=== PATIENT | male | born 1955 | race Caucasian/White ===

== ENCOUNTER → 2019-09-28 | Outpatient (REF) | payer MEDICARE, MEDICAID ==
[~2019-09-28] MED LIST: ACET1TAB55 PO; ADV250INH INH; ALLO100T PO; CALC600T3 PO; CYAN100049 PO; CYCL10TA PO; DOCU100C16 PO; ENOX30IN3 SC; LATA0.0013 OU; LORA-243 PO; MAGN250T3 PO; OMEP40CA97 PO; OXYC-517 PO; SENN8.6C PO; SIMV20TA2 PO; VITA20008 PO; VITMTA PO; WELLTAB40 PO; ZOFR8TAB24 PO
[2019-09-28 16:05] LABS: HEMATOCRIT 38.4 % (42.0-52.0); HEMOGLOBIN 12.4 g/dl (13.5-17.5); MEAN CORPUSCULAR HEMOGLOBIN 30.3 pg (27.0-33.0); MEAN CORPUSCULAR HGB CONC 32.3 g/dl (32.0-36.5); MEAN CORPUSCULAR VOLUME 93.9 fl (80.0-96.0); PLATELET COUNT, AUTOMATED 333 10^3/uL (150-450); RED BLOOD COUNT 4.09 10^6/uL (4.30-6.10); WHITE BLOOD COUNT 9.9 10^3/uL (4.0-10.0)
[2019-09-28 16:10] LABS: ALBUMIN 3.6 GM/DL (3.2-5.2); ALT/SGPT 26 U/L (12-78); BILIRUBIN,TOTAL 0.5 MG/DL (0.2-1.0); BLOOD UREA NITROGEN 24 MG/DL (7-18); C REACTIVE PROTEIN QUANTITATIV < 0.30 MG/DL (0.00-0.30); CALCIUM LEVEL 9.3 MG/DL (8.8-10.2); CARBON DIOXIDE LEVEL 26 MEQ/L (21-32); CHLORIDE LEVEL 107 MEQ/L (98-107); CREATININE FOR GFR 0.87 MG/DL (0.70-1.30); GLOMERULAR FILTRATION RATE > 60.0 (>49); GLUCOSE, FASTING 100 MG/DL (70-100); POTASSIUM SERUM 4.4 MEQ/L (3.5-5.1); SODIUM LEVEL 140 MEQ/L (136-145)
[2019-09-28 16:46] LABS: ERYTHROCYTE SEDIMENTATION RATE 10 mm/hr (0-20)
[2019-09-28 16:51] LABS: ATYPICAL LYMPH 3 % (0-5); BASOPHILS 1 % (0-1); EOSINOPHILS 5 % (0-3); LYMPHOCYTES 44 % (16-44); MONOCYTES 7 % (0-5); NEUTROPHILS 40 % (28-66); PLATELET ESTIMATE NORMAL (NORMAL)
[2019-09-28 16:52] LABS: ANISOCYTOSIS 1+; BURR CELLS 1+; POIKILOCYTOSIS 1+
== END ==
LOC: M SFHCPLAZ 13:48
PROVIDERS: ATTEND Internal Medicine Infectious Disease
DX: I83.013 Varicose veins of right lower extremity with ulcer of ankle (principal)
CPT/HCPCS: 36415; 80053; 85025; 85652; 86140; G0463

== ENCOUNTER → 2019-10-26 | Outpatient (REF) | payer MEDICARE, MEDICAID ==
[~2019-10-26] MED LIST changes: -SIMV20TA2 PO; +SIMV20TA22 PO
== END ==
LOC: M SFHCPLAZ 15:33
PROVIDERS: ATTEND Internal Medicine Infectious Disease
DX: S88.112A Complete traumatic amputation at level between knee and ankle, left lower leg, initial encounter (principal)
CPT/HCPCS: 87070; 87077; 87186; 87205; G0463

== ENCOUNTER → 2019-11-30 | Outpatient (REF) | payer MEDICARE, MEDICAID ==
[2019-11-30 13:28] LABS: BASO # 0.1 10^3/uL (0.0-0.2); BASO % 0.7 % (0.0-1.0); EOS # 0.2 10^3/uL (0.0-0.5); EOS % 2.6 % (0.0-3.0); HEMATOCRIT 38.1 % (42.0-52.0); HEMOGLOBIN 12.3 g/dl (13.5-17.5); LYMPH # 3.6 10^3/uL (1.5-5.0); LYMPH % 39.7 % (24.0-44.0); MEAN CORPUSCULAR HEMOGLOBIN 30.4 pg (27.0-33.0); MEAN CORPUSCULAR HGB CONC 32.3 g/dl (32.0-36.5); MEAN CORPUSCULAR VOLUME 94.1 fl (80.0-96.0); MONO # 1.1 10^3/uL (0.0-0.8); MONO % 12.7 % (0.0-5.0); NEUTROPHILS % 44.1 % (36.0-66.0); PLATELET COUNT, AUTOMATED 312 10^3/uL (150-450); RED BLOOD COUNT 4.05 10^6/uL (4.30-6.10)
[2019-11-30 14:00] LABS: ERYTHROCYTE SEDIMENTATION RATE 10 mm/hr (0-20)
[2019-11-30 14:09] LABS: ALBUMIN 3.6 GM/DL (3.2-5.2); ALT/SGPT 22 U/L (12-78); BILIRUBIN,TOTAL 0.2 MG/DL (0.2-1.0); BLOOD UREA NITROGEN 26 MG/DL (7-18); C REACTIVE PROTEIN QUANTITATIV < 0.30 MG/DL (0.00-0.30); CALCIUM LEVEL 8.9 MG/DL (8.8-10.2); CARBON DIOXIDE LEVEL 27 MEQ/L (21-32); CHLORIDE LEVEL 107 MEQ/L (98-107); CREATININE FOR GFR 0.69 MG/DL (0.70-1.30); FREE T4 0.83 NG/DL (0.76-1.46); GLOMERULAR FILTRATION RATE > 60.0 (>49); GLUCOSE, FASTING 104 MG/DL (70-100); POTASSIUM SERUM 4.6 MEQ/L (3.5-5.1); SODIUM LEVEL 141 MEQ/L (136-145); THYROID STIMULATING HORMONE 0.845 uIU/ML (0.358-3.740); TOTAL PROTEIN 6.7 GM/DL (6.4-8.2)
== END ==
LOC: M SFHCPLAZ 11:17
PROVIDERS: ATTEND Internal Medicine Infectious Disease
DX: R53.82 Chronic fatigue, unspecified (principal); I83.013 Varicose veins of right lower extremity with ulcer of ankle
CPT/HCPCS: 36415; 80053; 84439; 84443; 85025; 85652; 86140; G0463

== ENCOUNTER 2021-07-31 11:32 | Inpatient (IN) | payer MEDICARE, MEDICAID ==
[~2021-07-31] VITALS: Ht 177.8 cm; Wt 104.4 kg
[~2021-07-31 11:32] MED LIST changes: -CALC600T3 PO; +CALC600T86 PO; +CYCL-707 PO; -CYCL10TA PO; +OMEP40CA4 PO; -OMEP40CA97 PO
[2021-07-31 15:35] VITALS: BP 149/70
[2021-07-31] MEDS ORDERED: CYAN500T14 PO (16:51)
[2021-07-31] MEDS ORDERED: VITA-158 PO (16:51)
[2021-07-31] MEDS ORDERED: D31000TA2 PO (16:51)
[2021-07-31] MEDS ORDERED: ASPE4LIQ TOP (16:51)
[2021-07-31] MEDS ORDERED: VITMTA PO (16:51)
[2021-07-31] MEDS ORDERED: PROAAER10 INH (16:51)
[2021-07-31] MEDS ORDERED: SIMV20TA22 PO (16:51)
[2021-07-31] MEDS ORDERED: OMEP40CA4 PO (16:51)
[2021-07-31] MEDS ORDERED: ADV250INH INH (16:51)
[2021-07-31] MEDS ORDERED: HOME MED LIST COMPLETE! XX SCH (16:55)
[2021-07-31] MEDS ORDERED: VANCOMYCIN HCL 1,000 MG, VIAL MATE ADAPTER 1 EACH in NS 250 ML IV SCH ×2 (17:30→21:00)
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
[2021-07-31] MEDS ORDERED: ASPERCREME TOP PRN (18:15)
[2021-07-31] MEDS ORDERED: ACETAMINOPHEN TAB 650MG DOSE (2X325MG) PO PRN (18:15)
[2021-07-31] MEDS ORDERED: LIDOCAINE TOP PRN (18:15)
--- NOTE | 2021-07-31 19:04 | REP ---
INDICATION: right foot pain and ulcer onthe lateral planter aspect.. COMPARISON: None. TECHNIQUE: Four views FINDINGS: The bones are significantly demineralized. There is an age undetermined fracture involving the base of the 5th metatarsal. There is a type 2 os naviculare. Degenerative changes seen throughout the foot. There is a plantar calcaneal heel spur. IMPRESSION: 1. Age undetermined fracture involving the base of the 5th metatarsal. There is associated soft tissue swelling. There are other chronic changes as described above. Consider CT for further fracture evaluation and MRI if osteomyelitis is of clinical concern. <Electronically signed by Merrill Ocampo > 07/31/21 [id number]
[2021-07-31 19:15] LABS: BASO # 0.1 10^3/uL (0.0-0.2); BASO % 0.8 % (0.0-1.0); EOS # 0.5 10^3/uL (0.0-0.5); EOS % 4.4 % (0.0-3.0); HEMATOCRIT 37.6 % (42.0-52.0); LYMPH # 3.7 10^3/uL (1.5-5.0); MEAN CORPUSCULAR HEMOGLOBIN 29.6 pg (27.0-33.0); MEAN CORPUSCULAR HGB CONC 31.9 g/dl (32.0-36.5); MEAN CORPUSCULAR VOLUME 92.6 fl (80.0-96.0); MONO % 9.5 % (2.0-8.0); NEUTROPHILS # 5.3 10^3/uL (1.5-8.5); NEUTROPHILS % 49.9 % (36.0-66.0); PLATELET COUNT, AUTOMATED 365 10^3/uL (150-450); RED BLOOD COUNT 4.06 10^6/uL (4.30-6.10); WHITE BLOOD COUNT 10.6 10^3/uL (4.0-10.0)
[2021-07-31] MEDS: ADVAIR HFA 115/21MCG INHALER INH SCH (19:16)
[2021-07-31 19:39] LABS: ALBUMIN 2.9 GM/DL (3.2-5.2); ALT/SGPT 23 U/L (12-78); BILIRUBIN,TOTAL 0.4 MG/DL (0.2-1.0); BLOOD UREA NITROGEN 20 MG/DL (7-18); CALCIUM LEVEL 8.9 MG/DL (8.8-10.2); CARBON DIOXIDE LEVEL 29 MEQ/L (21-32); CHLORIDE LEVEL 111 MEQ/L (98-107); CREATININE FOR GFR 0.66 MG/DL (0.70-1.30); GLOMERULAR FILTRATION RATE > 60.0 (>49); GLUCOSE, FASTING 103 MG/DL (70-100); POTASSIUM SERUM 4.9 MEQ/L (3.5-5.1); SODIUM LEVEL 140 MEQ/L (136-145); TOTAL PROTEIN 6.3 GM/DL (6.4-8.2)
[2021-07-31] MEDS ORDERED: VANCOMYCIN HCL 1,000 MG, VIAL MATE ADAPTER 1 EACH in NS 250 ML IV ONE ×2 (20:00→21:00)
[2021-07-31] MEDS: SIMVASTATIN 20 MG TAB PO SCH (20:00)
[2021-07-31] MEDS: CYANOCOBALAMIN 500 MCG TAB PO SCH (20:00)
[2021-07-31] MEDS: OMEPRAZOLE 20 MG CAP PO SCH (20:00)
[2021-07-31] MEDS: MULTIVITAMINS/MINERALS THERAP 1 TAB PO SCH (20:00)
[2021-07-31] MEDS: ASCORBIC ACID 500 MG TAB PO SCH (20:00)
[2021-07-31] MEDS: traMADol 50 MG TAB PO PRN (20:01)
[2021-07-31 20:49] LABS: VANCOMYCIN RANDOM 11.7 UG/ML
[2021-07-31] MEDS: VANCOMYCIN HCL 750 MG, VIAL MATE ADAPTER 1 EACH in NS 250 ML IV SCH ×2 (21:47→22:50)
[2021-07-31 21:48] LABS: C REACTIVE PROTEIN QUANTITATIV 0.48 MG/DL (0.00-0.30)
[2021-07-31 22:00] VITALS: BP 122/59
[2021-07-31] MEDS ORDERED: VANCOMYCIN HCL 750 MG, VIAL MATE ADAPTER 1 EACH in NS 250 ML IV SCH (22:00)
[2021-08-01 06:00] VITALS: BP 132/57
[2021-08-01 06:08] LABS: BASO # 0.1 10^3/uL (0.0-0.2); BASO % 0.9 % (0.0-1.0); EOS # 0.4 10^3/uL (0.0-0.5); EOS % 4.8 % (0.0-3.0); HEMATOCRIT 35.1 % (42.0-52.0); HEMOGLOBIN 11.3 g/dl (13.5-17.5); MEAN CORPUSCULAR HEMOGLOBIN 29.8 pg (27.0-33.0); MEAN CORPUSCULAR HGB CONC 32.2 g/dl (32.0-36.5); MEAN CORPUSCULAR VOLUME 92.6 fl (80.0-96.0); MONO # 0.8 10^3/uL (0.0-0.8); MONO % 8.4 % (2.0-8.0); NEUTROPHILS # 4.7 10^3/uL (1.5-8.5); NEUTROPHILS % 52.7 % (36.0-66.0); PLATELET COUNT, AUTOMATED 344 10^3/uL (150-450); RED BLOOD COUNT 3.79 10^6/uL (4.30-6.10); WHITE BLOOD COUNT 8.9 10^3/uL (4.0-10.0)
[2021-08-01 06:35] LABS: BLOOD UREA NITROGEN 16 MG/DL (7-18); CALCIUM LEVEL 8.4 MG/DL (8.8-10.2); CARBON DIOXIDE LEVEL 27 MEQ/L (21-32); CHLORIDE LEVEL 109 MEQ/L (98-107); CREATININE FOR GFR 0.64 MG/DL (0.70-1.30); GLOMERULAR FILTRATION RATE > 60.0 (>49); GLUCOSE, FASTING 110 MG/DL (70-100); SODIUM LEVEL 141 MEQ/L (136-145)
[2021-08-01] MEDS: ADVAIR HFA 115/21MCG INHALER INH SCH ×2 (07:55→19:32)
[2021-08-01] MEDS ORDERED: PREVNAR 13 VACCINE SYRINGE IM ONE (09:00)
[2021-08-01] MEDS: VANCOMYCIN HCL 750 MG, VIAL MATE ADAPTER 1 EACH in NS 250 ML IV SCH ×4 (09:17→22:15)
[2021-08-01] MEDS: traMADol 50 MG TAB PO PRN (09:23)
--- NOTE | 2021-08-01 10:56 | IPNPDOC ---
Subjective Date Seen The patient was seen on 08/01/21. Subjective Chief Complaint/HPI No issues this morning. The foot pain is unchanged. Awaiting to be seen by podiatry. Have requested advanced wound care consult with Dr. Tavares for the right medial leg ulcer. Objective Physical Examination General Exam: Positive: Alert, Cooperative, No Acute Distress Eye Exam: Positive: PERRLA, Conjunctiva & lids normal, EOMI; Negative: Sclera icteric ENT Exam: Positive: Atraumatic, Mucous membr. moist/pink, Pharynx Normal Neck Exam: Positive: Supple; Negative: JVD, thyromegaly Chest Exam: Positive: Clear to auscultation, Normal air movement Heart Exam: Positive: Rate Normal, Regular Rhythm, Normal S1, Normal S2; Negative: Murmurs, Rubs Abdomen Exam: Positive: Normal bowel sounds, Soft, Hepatospenomegaly; Negative: Tenderness Extremity Exam: Positive: Other (left BKA, right foot varus deformity); Negative: Clubbing, Cyanosis, Edema Skin Exam: Positive: Breakdown (ulcer 6 cm x 4 cm on the medical aspect of the right leg just above the ankle) Psych Exam: Positive: Memory Intact, Oriented x 3 Assessment /Plan Assessment 66 year old male was transferred from [facility] for possible right foot osteomyelitis. Patient presented to outside hospital ED for right foot pain difficulty in bearing weight. Patient has chronic venous stasis ulcer on the medical aspect of right ankle which has been present for years. Now he has a new ulcer on the planter aspect of of his right foot at the level of the proximal fifth metatarsal bone. There is surrounding erythema around the medial ankle ulcer and the lateral planter ulcer. He has seen a blue crabber Dr Quintanilla at [place] a week before and this area had a callus which was incised and debrided but there was no erythema. She was concerned for Osteomyelitis and wanted the patient to be admitted however [facility] was at capacity so patient was transferred here for further management. Possible OM of right Foot Chronic fracture of the right fifth metatarsal bone MRSA PCR screen positive on vancomycin consulted podiatry. Infected venous stasis ulcer on the right medial ankle says the wound was closed most of the year but then opened up again 2 months ago and the surrounding has been erythematous for 1 month. on vancomycin Will consult Dr. Tavares Asthma continue advair HLD statin GERD PPI Plan/VTE VTE Prophylaxis Ordered?: Yes VS, I&O, 24H, Fishbone Vital Signs/I&O Vital Signs Date Time Temp Pulse Resp B/P (MAP) Pulse Ox O2 Delivery O2 Flow Rate FiO2 08/01/21 09:53 16 08/01/21 06:00 97.6 54 132/57 (82) 95 Room Air I&O- Last 24 Hours up to 6 AM 08/01/21 06:00 Intake Total 990 ml Output Total 375 ml Balance 615 ml Laboratory Data 24H LABS Laboratory Tests 2 07/31/21 17:59: Methicillin-Resist S.aureus DNA PCR DETECTEDA 07/31/21 18:49: Immature Granulocyte % (Auto) 0.4, Neutrophils (%) (Auto) 49.9, Lymphocytes (%) (Auto) 35.0, Monocytes (%) (Auto) 9.5H, Eosinophils (%) (Auto) 4.4H, Basophils (%) (Auto) 0.8, Neutrophils # (Auto) 5.3, Lymphocytes # (Auto) 3.7, Monocytes # (Auto) 1.0H, Eosinophils # (Auto) 0.5, Basophils # (Auto) 0.1, Nucleated Red Blood Cells % (auto) 0.0, Anion Gap 0L, Glomerular Filtration Rate > 60.0, Calcium Level 8.9, Total Bilirubin 0.4, Aspartate Amino Transf (AST/SGOT) 19, Alanine Aminotransferase (ALT/SGPT) 23, Alkaline Phosphatase 136H, C-Reactive Protein, Quantitative 0.48H, Total Protein 6.3L, Albumin 2.9L, Albumin/Globulin Ratio 0.9, Random Vancomycin Level 11.7 08/01/21 05:51: Immature Granulocyte % (Auto) 0.2, Neutrophils (%) (Auto) 52.7, Lymphocytes (%) (Auto) 33.0, Monocytes (%) (Auto) 8.4H, Eosinophils (%) (Auto) 4.8H, Basophils (%) (Auto) 0.9, Neutrophils # (Auto) 4.7, Lymphocytes # (Auto) 3.0, Monocytes # (Auto) 0.8, Eosinophils # (Auto) 0.4, Basophils # (Auto) 0.1, Nucleated Red Blood Cells % (auto) 0.0, Anion Gap 5L, Glomerular Filtration Rate > 60.0, Calcium Level 8.4L CBC/BMP Laboratory Tests 07/31/21 18:49 08/01/21 05:51 Jennie Edmond MD Aug 01, 2021 10:56
[2021-08-01 14:00] VITALS: BP 134/59
--- NOTE | 2021-08-01 14:16 | CR ---
ADVANCED WOUND CARE TELEMEDICINE CONSULTATION DATE: 08/01/2021 REQUESTING PHYSICIAN: Dr. Jennie Edmond CONSULTING PHYSICIAN: Dr. Lowell Tavares REASON FOR CONSULTATION: Right foot wounds. Wound care telemedicine provides a visual assessment of a wound without the benefit of physical examination. It can assist with establishing a diagnosis and etiology. This allows for an initial treatment plan. As wounds often change, it may be necessary to modify the original care. Our recommendation is periodic wound reassessment to monitor treatment. Failure to comply may result in non healing of the wound, possible complications and/or a poor outcome. The recommendations given will serve as treatment options. As I will not be following this patient, this care plan will require the attending physician to give and sign the orders. Upon discharge, outpatient follow up can be scheduled at our [facility]. HISTORY OF PRESENT ILLNESS: A 66-year-old male, non-diabetic, admitted for a right medial supramalleolar wound consistent with a venous stasis ulcer. The patient has had problems with this off and on. The patient also has a history of a previous right ankle fracture which may have caused disruption of the venous return precipitating the wound. The wound measures 5.3 cm by 3.5 cm with a wound depth of 0.5 cm. This wound base shows areas of granulation tissue and superficial fibrin slough. There is no undermining or epiboly involving the wound edge which appears viable. No deep structures could be identified on visual inspection. There is no edema present and no significant hemosiderosis seen. On the lateral aspect of his right foot the patient has two small dry eschars which he ndicated a dancing instructor had dbrided but is causing him discomfort. TREATMENT RECOMMENDATIONS: 1. Wounds should be cleaned with Vashe Wound Cleanser for 10 minutes and then the wound treated with Hydrofera Blue Classic, covered with an Optilock, secured with a Kerlix or Elvi, avoid tape to the skin. 2. Dressing changes should be done on an every other day basis. 3. A baseline arterial ultrasound of the right lower extremity should be obtained to rule out any peripheral vascular disease. 4. Also consideration for an MRI of the right foot to indicate whether or not there is still hardware present and to ensure that there is no malunion. 5. If arterial study is negative, the patient would need a standing venous ultrasound to evaluate for venous reflux. This is a separate exam. 6. There is no significant edema present. This would does not appear infected, but colonized and therefore no indication at present for antibiotic therapy. MTDD
[2021-08-01] MEDS ORDERED: KETOROLAC 30 MG/ML 1ML VIAL IV PRN (14:25)
[2021-08-01] MEDS ORDERED: KETOROLAC 30 MG/ML 1ML VIAL IV ONE (14:25)
--- NOTE | 2021-08-01 14:26 | REP ---
INDICATION: right leg chronic ulcer. COMPARISON: None. TECHNIQUE: Real time de la cruz scale and Duplex Doppler evaluation of the right lower extremity arterial vasculature using linear high frequency transducer. FINDINGS: There is moderate calcific plaquing throughout the right lower extremity arterial system with no duplex Doppler sonographic evidence of hemodynamically significant stenosis. Diffuse triphasic waveforms are noted. Monophasic waveform is noted in the distal posterior tibial artery. PSV(cm/sec) Common femoral artery: 100 cm/s Profunda femoris artery: 110 cm/s Proximal superficial femoral artery: 95 cm/s Mid superficial femoral artery: 118 cm/s Distal superficial femoral artery: 95 cm/s Popliteal artery: 106 cm/s Proximal KLAUS: 110 cm/s Tibioperoneal trunk: 76 cm/s Proximal ANTIQUE CLOCKS REPAIRER: 108 cm/s Distal ANTIQUE CLOCKS REPAIRER: 91 cm/s Distal KLAUS: 145 cm/s IMPRESSION: No Duplex Doppler sonographic evidence of hemodynamically significant stenosis of the right lower extremity arterial system. <Electronically signed by Lemuel De La Cruz > 08/01/21 [id number]
[2021-08-01] MEDS ORDERED: cefTRIAXone SOD 1 GM in D5W MINI-BAG PLUS 50 ML IV SCH (14:35)
[2021-08-01] MEDS: cefTRIAXone SOD 2 GM in D5W MINI-BAG PLUS 50 ML IV SCH (16:04)
--- NOTE | 2021-08-01 18:02 | REP ---
INDICATION: standing venous US for reflux.. COMPARISON: None. TECHNIQUE: Right {lower extremity duplex venous scanning is performed from the groin to the ankle level. FINDINGS: The deep veins are anechoic and fully compressible from the groin to the popliteal fossa in the right lower extremity. Color flow imaging is homogeneous. Spectral Doppler interrogation demonstrates intact respiratory variation in flow and normal manual augmentation of flow. There is no evidence of deep vein thrombosis above the knee. There is no evidence of DVT in the visualized calf veins. Doppler interrogation of the contralateral common femoral vein shows normal symmetric respiratory phasicity. IMPRESSION: No evidence of DVT in the right lower extremity femoropopliteal veins. No DVT in the visible portions of the calf veins. <Electronically signed by Jean Carrasco > 08/01/21 [id number]
[2021-08-01] MEDS: SIMVASTATIN 20 MG TAB PO SCH (20:47)
[2021-08-01] MEDS: ASCORBIC ACID 500 MG TAB PO SCH (20:47)
[2021-08-01] MEDS: CYANOCOBALAMIN 500 MCG TAB PO SCH (20:47)
[2021-08-01] MEDS: MULTIVITAMINS/MINERALS THERAP 1 TAB PO SCH (20:47)
[2021-08-01] MEDS: OMEPRAZOLE 20 MG CAP PO SCH (20:48)
[2021-08-01 22:00] VITALS: BP 147/68
[2021-08-02 06:00] VITALS: BP 150/76
[2021-08-02 06:15] LABS: BASO # 0.1 10^3/uL (0.0-0.2); BASO % 0.7 % (0.0-1.0); EOS # 0.4 10^3/uL (0.0-0.5); EOS % 4.3 % (0.0-3.0); HEMATOCRIT 35.6 % (42.0-52.0); HEMOGLOBIN 11.3 g/dl (13.5-17.5); LYMPH # 2.5 10^3/uL (1.5-5.0); LYMPH % 28.5 % (24.0-44.0); MEAN CORPUSCULAR HEMOGLOBIN 29.5 pg (27.0-33.0); MEAN CORPUSCULAR HGB CONC 31.7 g/dl (32.0-36.5); MONO # 0.9 10^3/uL (0.0-0.8); MONO % 10.6 % (2.0-8.0); NEUTROPHILS # 4.8 10^3/uL (1.5-8.5); NEUTROPHILS % 55.6 % (36.0-66.0); PLATELET COUNT, AUTOMATED 363 10^3/uL (150-450); RED BLOOD COUNT 3.83 10^6/uL (4.30-6.10); WHITE BLOOD COUNT 8.7 10^3/uL (4.0-10.0)
[2021-08-02 06:38] LABS: BLOOD UREA NITROGEN 15 MG/DL (7-18); CALCIUM LEVEL 8.2 MG/DL (8.8-10.2); CARBON DIOXIDE LEVEL 26 MEQ/L (21-32); CHLORIDE LEVEL 108 MEQ/L (98-107); CREATININE FOR GFR 0.65 MG/DL (0.70-1.30); GLOMERULAR FILTRATION RATE > 60.0 (>49); GLUCOSE, FASTING 168 MG/DL (70-100); POTASSIUM SERUM 4.5 MEQ/L (3.5-5.1); SODIUM LEVEL 140 MEQ/L (136-145)
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
[2021-08-02 08:00] VITALS: BP 122/53
[2021-08-02] MEDS: ADVAIR HFA 115/21MCG INHALER INH SCH ×2 (08:17→19:53)
[2021-08-02] MEDS: VANCOMYCIN HCL 750 MG, VIAL MATE ADAPTER 1 EACH in NS 250 ML IV SCH ×4 (09:52→23:03)
--- NOTE | 2021-08-02 10:31 | IPNPDOC ---
Subjective Date Seen The patient was seen on 08/02/21. Subjective Chief Complaint/HPI No complaints this morning. The redness around the medial ulcer in the right leg improved. Pain is controlled Objective Physical Examination General Exam: Positive: Alert, Cooperative, No Acute Distress Eye Exam: Positive: PERRLA, Conjunctiva & lids normal, EOMI; Negative: Sclera icteric ENT Exam: Positive: Atraumatic, Mucous membr. moist/pink, Pharynx Normal Neck Exam: Positive: Supple; Negative: JVD, thyromegaly Chest Exam: Positive: Clear to auscultation, Normal air movement Heart Exam: Positive: Rate Normal, Regular Rhythm, Normal S1, Normal S2; Negative: Murmurs, Rubs Abdomen Exam: Positive: Normal bowel sounds, Soft, Hepatospenomegaly; Negative: Tenderness Extremity Exam: Positive: Other (left BKA, right foot varus deformity); Negative: Clubbing, Cyanosis, Edema Skin Exam: Positive: Breakdown (ulcer 6 cm x 4 cm on the medical aspect of the right leg just above the ankle) Psych Exam: Positive: Memory Intact, Oriented x 3 Assessment /Plan Assessment 66 year old male was transferred from [facility] for possible right foot osteomyelitis. Patient presented to outside hospital ED for right foot pain difficulty in bearing weight. Patient has chronic venous stasis ulcer on the medical aspect of right ankle which has been present for years. Now he has a new ulcer on the planter aspect of of his right foot at the level of the proximal fifth metatarsal bone. There is surrounding erythema around the medial ankle ulcer and the lateral planter ulcer. He has seen a emissions inspector Dr Quintanilla at [place] a week before and this area had a callus which was incised and debrided but there was no erythema. She was concerned for Osteomyelitis and wanted the patient to be admitted however [facility] was at capacity so [facility] was transferred here for further management. Chronic fracture of the right fifth metatarsal bone with chronic inversion deformity of the foot. No OM. seen by podiatry . No acute intervention. Patient wants to get the foot amputated. Will need referral to vascular surgery for this. Venous stasis ulcer on the right medial ankle with surrounding cellulitis. says the wound was closed most of the year but then opened up again 2 months ago and the surrounding has been erythematous for 1 month. Blood cultures from outside hospital are prelim positive on vancomycin and ceftriaxone Await final cultures for decision regarding antibiotics. appreciate Dr Tavares's consult. Asthma continue advair HLD statin GERD PPI Plan/VTE VTE Prophylaxis Ordered?: Yes VS, I&O, 24H, Fishbone Vital Signs/I&O Vital Signs Date Time Temp Pulse Resp B/P (MAP) Pulse Ox O2 Delivery O2 Flow Rate FiO2 08/02/21 08:00 98.0 63 16 122/53 (76) 96 Room Air I&O- Last 24 Hours up to 6 AM 08/02/21 06:00 Intake Total 1180 ml Output Total 725 ml Balance 455 ml Laboratory Data 24H LABS Laboratory Tests 2 08/01/21 19:57: Vancomycin Level Trough 18.0 08/01/21 21:19: Bedside Glucose (Misc Panel) 174H 08/02/21 05:34: Immature Granulocyte % (Auto) 0.3, Neutrophils (%) (Auto) 55.6, Lymphocytes (%) (Auto) 28.5, Monocytes (%) (Auto) 10.6H, Eosinophils (%) (Auto) 4.3H, Basophils (%) (Auto) 0.7, Neutrophils # (Auto) 4.8, Lymphocytes # (Auto) 2.5, Monocytes # (Auto) 0.9H, Eosinophils # (Auto) 0.4, Basophils # (Auto) 0.1, Nucleated Red Blood Cells % (auto) 0.0, Anion Gap 6L, Glomerular Filtration Rate > 60.0, Calcium Level 8.2L CBC/BMP Laboratory Tests 08/02/21 05:34 Microbiology Microbiology 08/01/21 Blood Culture, Received Pending 08/01/21 Blood Culture, Received Pending Jennie Edmond MD Aug 02, 2021 10:31
[2021-08-02] MEDS: traMADol 50 MG TAB PO PRN (11:02)
[2021-08-02 14:00] VITALS: BP_SYST 122; BP_SYST 142; BP_DIAS 62; BP_DIAS 64
[2021-08-02] MEDS: cefTRIAXone SOD 2 GM in D5W MINI-BAG PLUS 50 ML IV SCH (15:29)
[2021-08-02] MEDS: SIMVASTATIN 20 MG TAB PO SCH (21:38)
[2021-08-02] MEDS: MULTIVITAMINS/MINERALS THERAP 1 TAB PO SCH (21:38)
[2021-08-02] MEDS: CYANOCOBALAMIN 500 MCG TAB PO SCH (21:38)
[2021-08-02] MEDS: ASCORBIC ACID 500 MG TAB PO SCH (21:38)
[2021-08-02] MEDS: OMEPRAZOLE 20 MG CAP PO SCH (21:38)
[2021-08-02 22:00] VITALS: BP 139/64
[2021-08-03 06:00] VITALS: BP 137/66
[2021-08-03] MEDS: ADVAIR HFA 115/21MCG INHALER INH SCH (07:42)
[2021-08-03] MEDS: VANCOMYCIN HCL 750 MG, VIAL MATE ADAPTER 1 EACH in NS 250 ML IV SCH ×2 (09:24→10:39)
[2021-08-03] MEDS ORDERED: CEFD300CAP PO (10:07)
[2021-08-03] MEDS ORDERED: DOXY-350 PO (10:07)
--- NOTE | 2021-08-03 12:26 | DS.PDOC ---
Discharge Summary General Date of Admission Jul 31, 2021 at 15:35 Date of Discharge 08/03/21 Discharge Summary PROCEDURES PERFORMED DURING STAY: [None]. DISCHARGE DIAGNOSES: Cellulitis of the right leg Chronic fracture of the right fifth metatarsal bone with chronic inversion deformity of the foot. Chronic callus on the plantar aspect of the right lateral foot Right medial venous stasis ulcer Asthma HLD GERD COMPLICATIONS/CHIEF COMPLAINT: Right Foot Ulcer. HOSPITAL COURSE: 66 year old male was transferred from [facility] for possible right foot osteomyelitis. Patient presented to outside hospital ED for right foot pain difficulty in bearing weight. Patient has chronic venous stasis ulcer on the medical aspect of right ankle which has been present for years. Now he has a new ulcer on the planter aspect of of his right foot at the level of the proximal fifth metatarsal bone. There is surrounding erythema around the medial ankle ulcer and the lateral planter ulcer. He has seen a government sales manager Dr Quintanilla at [place] a week before and this area had a callus which was incised and debrided but there was no erythema. She was concerned for Osteomyelitis and wanted the patient to be admitted however [facility] was at capacity so patient was transferred here for further management. Chronic fracture of the right fifth metatarsal bone with chronic inversion deformity of the foot. No OM. seen by podiatry . No acute intervention. Patient wants to get the foot amputated. Will need referral to vascular surgery for this. Venous stasis ulcer on the right medial ankle with surrounding cellulitis. says the wound was closed most of the year but then opened up again 2 months ago and the surrounding has been erythematous for 1 month. Blood cultures from outside hospital shows MRSA and gram neg rods. Given vancomycin and ceftriaxone will dc with doxycycline and cefdinir. appreciate Dr Tavares's consult Right lower extremity arterial ultrasound did not show any significant Asthma continue advair HLD statin GERD PPI DISCHARGE MEDICATIONS: Please see below. ALLERGIES: Please see below. PHYSICAL EXAMINATION ON DISCHARGE: VITAL SIGNS: Please see below. General Exam: Positive: Alert, Cooperative, No Acute Distress Eye Exam: Positive: PERRLA, Conjunctiva & lids normal, EOMI; Negative: Sclera icteric ENT Exam: Positive: Atraumatic, Mucous membr. moist/pink, Pharynx Normal Neck Exam: Positive: Supple; Negative: JVD, thyromegaly Chest Exam: Positive: Clear to auscultation, Normal air movement Heart Exam: Positive: Rate Normal, Regular Rhythm, Normal S1, Normal S2; Negative: Murmurs, Rubs Abdomen Exam: Positive: Normal bowel sounds, Soft, Hepatospenomegaly; Negative: Tenderness Extremity Exam: Positive: Other (left BKA, right foot varus deformity); Negative: Clubbing, Cyanosis, Edema Skin Exam: Positive: Breakdown (ulcer 6 cm x 4 cm on the medical aspect of the right leg just above the ankle) Psych Exam: Positive: Memory Intact, Oriented x 3 LABORATORY DATA: Please see below. Radiology: Vascular ultrasound: FINDINGS: There is moderate calcific plaquing throughout the right lower extremity arterial system with no duplex Doppler sonographic evidence of hemodynamically significant stenosis. Diffuse triphasic waveforms are noted. Monophasic waveform is noted in the distal posterior tibial artery. PSV(cm/sec) Common femoral artery: 100 cm/s Profunda femoris artery: 110 cm/s Proximal superficial femoral artery: 95 cm/s Mid superficial femoral artery: 118 cm/s Distal superficial femoral artery: 95 cm/s Popliteal artery: 106 cm/s Proximal KLAUS: 110 cm/s Tibioperoneal trunk: 76 cm/s Proximal RADIOLOGIST PHYSICIAN: 108 cm/s Distal RADIOLOGIST PHYSICIAN: 91 cm/s Distal KLAUS: 145 cm/s IMPRESSION: No Duplex Doppler sonographic evidence of hemodynamically significant stenosis of the right lower extremity arterial system. ACTIVITY: [As tolerated]. DIET: As tolerated DISCHARGE PLAN: Home DISPOSITION: . DISCHARGE INSTRUCTIONS: PMD in 2 week Podiatry in [address] Tavares in 1 week 1. Wounds should be cleaned with Vashe Wound Cleanser for 10 minutes and then the wound treated with Hydrofera Blue Classic, covered with an Optilock, secured with a Kerlix or Elvi, avoid tape to the skin. 2. Dressing changes should be done on an every other day basis. Vascular surgery referral from PMD if patient wants to go ahead with amputation. ITEMS TO FOLLOWUP ON ON OUTPATIENT: Final blood culture from [facility] DISCHARGE CONDITION: [Stable]. TIME SPENT ON DISCHARGE: 35 minutes. Vital Signs/I&Os Vital Signs Date Time Temp Pulse Resp B/P (MAP) Pulse Ox O2 Delivery O2 Flow Rate FiO2 08/03/21 06:00 97.5 59 17 137/66 (89) 99 Room Air I&O- Last 24 Hours up to 6 AM 08/03/21 06:00 Intake Total 2890 ml Output Total 2180 ml Balance 710 ml Laboratory Data Labs 24H Laboratory Tests 2 08/02/21 20:01: Vancomycin Level Trough 21.2H Microbiology Microbiology 08/01/21 Blood Culture - Preliminary, Resulted No growth after 24 hours . All specim... 08/01/21 Blood Culture - Preliminary, Resulted No growth after 24 hours . All specim... Discharge Medications Scheduled Ascorbic Acid (Vitamin C) 500 Mg Tablet, 500 MG PO QHS, (Reported) Cefdinir (Cefdinir) 300 Mg Capsule, 1 CAP PO BID Cholecalciferol (Vitamin D3) (Vitamin D3) 1,000 Unit Tablet, 1,000 UNITS PO QHS, (Reported) Cyanocobalamin (Vitamin B-12) (Vitamin B-12) 500 Mcg Tablet, 500 MCG PO QHS, (Reported) Doxycycline Monohydrate (Doxycycline) 100 Mg Capsule, 1 CAP PO BID Lidocaine HCl (Aspercreme Lidocaine) 73 Ml Liqd.rosette, 1 APLCT TOP DAILY, (Reported) LEFT LEG AMPUTATION AREA Multivitamins (Thera M Plus Tablet) 1 Each Tablet, 1 TAB PO QHS, (Reported) Omeprazole (Omeprazole) 40 Mg Capsule.dr, 40 MG PO QHS, (Reported) Salmeterol/Fluticasone (Advair 250-50 Diskus) 1 Each Blst.w.dev, 1 PUFF INH BID, (Reported) Simvastatin (Simvastatin) 20 Mg Tablet, 20 MG PO QHS, (Reported) Scheduled PRN Albuterol Sulfate (Proair Hfa) 8.5 Gm Hfa.aer.ad, 2 PUFF INH Q6H PRN for SHORTNESS OF BREATH, (Reported) Allergies Coded Allergies: No Known Allergies (Verified Allergy, Unknown, 07/31/21) Jennie Edmond MD Aug 03, 2021 12:25
== END 2021-08-03 13:00 | disposition home or self-care (01) | DRG 300 ==
LOC: M MSPAV 15:35
PROVIDERS: ADMIT Internal Medicine; ATTEND Internal Medicine Nephrology
DX: I83.203 Varicose veins of unspecified lower extremity with both ulcer of ankle and inflammation (principal); L03.115 Cellulitis of right lower limb; J45.909 Unspecified asthma, uncomplicated; I10 Essential (primary) hypertension; K21.9 Gastro-esophageal reflux disease without esophagitis; L84 Corns and callosities; M21.6X1 Other acquired deformities of right foot; Z79.899 Other long term (current) drug therapy; M10.9 Gout, unspecified; F32.9 Major depressive disorder, single episode, unspecified; Z90.81 Acquired absence of spleen; Z90.49 Acquired absence of other specified parts of digestive tract

== ENCOUNTER 2023-02-14 07:30 | Inpatient (IN) | payer MEDICARE, MEDICAID ==
[~2023-02-14] VITALS: Ht 177.8 cm; Wt 93.5 kg
[~2023-02-14 07:30] MED LIST changes: +ALBU6.7H6 INH; +ASPE4LIQ TOP; +ATOR1TAB21 PO; +CALC600T61 PO; +CEFD300CAP PO; +CYAN500T14 PO; +DOXY-444 PO; +DOXY100T PO; +LATA0.0015 OU; +LISI5TAB11 PO; +MAGN400C PO; +OMEP40CA5 PO; +PERCOCET PO; +PROAAER10 INH; +VITA-158 PO; +VITA100093 PO; +ceFAZolin SOD 2 GM in IV 1 EA IV ONE
[2023-02-14 08:39] LABS: HEMATOCRIT 36.1 % (42.0-52.0); HEMOGLOBIN 11.6 g/dl (13.5-17.5); MEAN CORPUSCULAR HGB CONC 32.1 g/dl (32.0-36.5); PLATELET COUNT, AUTOMATED 385 10^3/uL (150-450); RED BLOOD COUNT 4.15 10^6/uL (4.30-6.10); WHITE BLOOD COUNT 9.4 10^3/uL (4.0-10.0)
[2023-02-14] MEDS ORDERED: LIDOCAINE 2% 100MG/5ML SDV (FOR ANES.) As Ordered ONE (08:54)
[2023-02-14] MEDS ORDERED: ONDANSETRON 4MG 2ML VIAL As Ordered ONE (08:54)
[2023-02-14] MEDS ORDERED: propofoL 200 MG/20 ML VIAL As Ordered ONE (08:54)
[2023-02-14 09:10] LABS: BLOOD UREA NITROGEN 14 MG/DL (9-23); CARBON DIOXIDE LEVEL 27 MMOL/L (20-31); CHLORIDE LEVEL 104 MMOL/L (98-107); CREATININE FOR GFR 0.75 MG/DL (0.70-1.30); GLOMERULAR FILTRATION RATE > 60.0 (>49); GLUCOSE, FASTING 113 MG/DL (74-106); MAGNESIUM LEVEL 1.8 MG/DL (1.8-2.4); POTASSIUM SERUM 4.5 MMOL/L (3.5-5.1); SODIUM LEVEL 138 MMOL/L (136-145)
[2023-02-14 09:34] LABS: INR 0.94; PROTHROMBIN TIME 12.8 SECONDS (12.5-14.5)
[2023-02-14 09:35] LABS: PARTIAL THROMBOPLASTIN TIME 27.7 SECONDS (24.8-34.2)
[2023-02-14] MEDS ORDERED: LR 1,000 ML IV SCH (10:40)
[2023-02-14] MEDS ORDERED: fentaNYL 100 MCG/2 ML INJECTION As Ordered ONE (10:42)
[2023-02-14] MEDS ORDERED: METOCLOPRAMIDE INJ 10MG/2ML VIAL IV PRN (11:45)
[2023-02-14] MEDS ORDERED: ONDANSETRON 4MG 2ML VIAL IV PRN (11:45)
[2023-02-14] MEDS ORDERED: MORPHINE 2 MG/ML 1ML VIAL IV PRN (11:45)
[2023-02-14] MEDS ORDERED: fentaNYL 100 MCG/2 ML INJECTION IV PRN (11:45)
[2023-02-14] MEDS ORDERED: oxyCODONE 5MG TAB PO PRN (11:45)
[2023-02-14] MEDS ORDERED: MAGNESIUM SULFATE IN WATER 2 GM in IV 1 EA IV STA ×2 (11:50)
[2023-02-14] MEDS: MAG SULF 1GM/100ML (MAG RUN) X 2 DOSES (2GM TOTAL) IV SCH ×4 (12:00→13:25)
[2023-02-14 12:31] LABS: INR 0.91; PROTHROMBIN TIME 12.5 SECONDS (12.5-14.5)
[2023-02-14 12:32] LABS: PARTIAL THROMBOPLASTIN TIME 26.9 SECONDS (24.8-34.2)
[2023-02-14 12:47] VITALS: BP 188/85
[2023-02-14 12:50] LABS: ALBUMIN 3.4 G/DL (3.2-5.2); ALKALINE PHOSPHATASE 167 U/L (46-116); ALT/SGPT 22 U/L (7.0-40); AST/SGOT 32 U/L (<34); BILIRUBIN,TOTAL 0.6 MG/DL (0.3-1.2); BLOOD UREA NITROGEN 14 MG/DL (9-23); CALCIUM LEVEL 9.1 MG/DL (8.3-10.6); CARBON DIOXIDE LEVEL 27 MMOL/L (20-31); CHLORIDE LEVEL 105 MMOL/L (98-107); CREATININE FOR GFR 0.74 MG/DL (0.70-1.30); GLOMERULAR FILTRATION RATE > 60.0 (>49); GLUCOSE, FASTING 106 MG/DL (74-106); MAGNESIUM LEVEL 1.8 MG/DL (1.8-2.4); POTASSIUM SERUM 4.9 MMOL/L (3.5-5.1); SODIUM LEVEL 138 MMOL/L (136-145); TOTAL PROTEIN 6.5 G/DL (5.7-8.2)
[2023-02-14] MEDS ORDERED: ALBUTEROL 90 MCG/ACT 8GM HFA INHALER INH PRN (13:05)
[2023-02-14 15:50] VITALS: BP 142/50
[2023-02-14 16:37] VITALS: BP 148/68
[2023-02-14 19:41] VITALS: BP 109/55
[2023-02-14] MEDS: ADVAIR HFA 115/21MCG INHALER INH SCH (20:00)
[2023-02-14] MEDS: CARVedilol 3.125 MG TAB PO SCH (20:50)
[2023-02-14] MEDS: VITAMIN D 1,000 INTERNATIONAL UNITS TABLET PO SCH (20:51)
[2023-02-14] MEDS: CYANOCOBALAMIN 500 MCG TAB PO SCH (20:51)
[2023-02-14] MEDS: ISOSORBIDE MON. (IMDUR) 30MG XR TAB PO SCH (20:51)
[2023-02-14] MEDS: VALSARTAN 40MG TABLET (DIOVAN) PO SCH (20:51)
[2023-02-14] MEDS: MULTIVITAMINS/MINERALS THERAP 1 TAB PO SCH (20:51)
[2023-02-14] MEDS: ENOXAPARIN 40MG/0.4ML SYRINGE (J1650 PER 10MG) SC SCH (20:52)
[2023-02-14 23:49] VITALS: BP 105/46
[2023-02-15 03:53] VITALS: BP 122/58
[2023-02-15 07:41] VITALS: BP 106/58
[2023-02-15 07:52] LABS: BLOOD UREA NITROGEN 14 MG/DL (9-23); CALCIUM LEVEL 8.8 MG/DL (8.3-10.6); CARBON DIOXIDE LEVEL 27 MMOL/L (20-31); CHLORIDE LEVEL 107 MMOL/L (98-107); GLOMERULAR FILTRATION RATE > 60.0 (>49); GLUCOSE, FASTING 136 MG/DL (74-106); POTASSIUM SERUM 4.9 MMOL/L (3.5-5.1); SODIUM LEVEL 139 MMOL/L (136-145)
[2023-02-15] MEDS: ADVAIR HFA 115/21MCG INHALER INH SCH ×2 (08:19→20:34)
[2023-02-15] MEDS: ATORVASTATIN 20 MG TAB PO SCH (08:54)
[2023-02-15] MEDS: CARVedilol 3.125 MG TAB PO SCH ×3 (08:54→20:25)
[2023-02-15] MEDS: VALSARTAN 40MG TABLET (DIOVAN) PO SCH ×2 (08:54→09:00)
[2023-02-15] MEDS: MAGNESIUM OXIDE 400MG TAB (MAG-OX) PO SCH (08:54)
[2023-02-15] MEDS: ACETAMINOPHEN TAB 650MG DOSE (2X325MG) PO PRN (10:22)
[2023-02-15 12:00] VITALS: BP 113/56
[2023-02-15 16:22] VITALS: BP 136/64
[2023-02-15 20:00] VITALS: BP 121/58
[2023-02-15] MEDS: ENOXAPARIN 40MG/0.4ML SYRINGE (J1650 PER 10MG) SC SCH (20:24)
[2023-02-15] MEDS: MULTIVITAMINS/MINERALS THERAP 1 TAB PO SCH (20:25)
[2023-02-15] MEDS: CYANOCOBALAMIN 500 MCG TAB PO SCH (20:25)
[2023-02-15] MEDS: VITAMIN D 1,000 INTERNATIONAL UNITS TABLET PO SCH (20:25)
[2023-02-15] MEDS: ISOSORBIDE MON. (IMDUR) 30MG XR TAB PO SCH (20:25)
[2023-02-15 23:51] VITALS: BP 104/54
[2023-02-16 03:50] VITALS: BP 134/66
[2023-02-16] MEDS: ACETAMINOPHEN TAB 650MG DOSE (2X325MG) PO PRN (04:02)
[2023-02-16 05:33] LABS: BASO # 0.1 10^3/uL (0.0-0.2); BASO % 0.7 % (0.0-1.0); EOS # 0.2 10^3/uL (0.0-0.5); EOS % 3.2 % (0.0-3.0); HEMATOCRIT 35.5 % (42.0-52.0); HEMOGLOBIN 11.1 g/dl (13.5-17.5); LYMPH # 2.8 10^3/uL (1.5-5.0); MEAN CORPUSCULAR HEMOGLOBIN 27.6 pg (27.0-33.0); MEAN CORPUSCULAR HGB CONC 31.3 g/dl (32.0-36.5); MEAN CORPUSCULAR VOLUME 88.3 fl (80.0-96.0); MONO # 0.8 10^3/uL (0.0-0.8); MONO % 11.5 % (2.0-8.0); NEUTROPHILS # 3.4 10^3/uL (1.5-8.5); NEUTROPHILS % 46.3 % (36.0-66.0); PLATELET COUNT, AUTOMATED 366 10^3/uL (150-450); RED BLOOD COUNT 4.02 10^6/uL (4.30-6.10); WHITE BLOOD COUNT 7.3 10^3/uL (4.0-10.0)
[2023-02-16 07:28] VITALS: BP 121/64
[2023-02-16] MEDS: ADVAIR HFA 115/21MCG INHALER INH SCH ×2 (07:57→22:02)
[2023-02-16] MEDS: VALSARTAN 40MG TABLET (DIOVAN) PO SCH (08:24)
[2023-02-16] MEDS: MAGNESIUM OXIDE 400MG TAB (MAG-OX) PO SCH (08:25)
[2023-02-16] MEDS: ATORVASTATIN 20 MG TAB PO SCH (08:25)
[2023-02-16] MEDS: CARVedilol 3.125 MG TAB PO SCH (08:25)
[2023-02-16 11:25] VITALS: BP 107/67
[2023-02-16 19:45] VITALS: BP 99/56
[2023-02-16] MEDS: CARVedilol 6.25 MG TAB PO SCH (20:06)
[2023-02-16] MEDS: VITAMIN D 1,000 INTERNATIONAL UNITS TABLET PO SCH (20:10)
[2023-02-16] MEDS: ENOXAPARIN 40MG/0.4ML SYRINGE (J1650 PER 10MG) SC SCH (20:10)
[2023-02-16] MEDS: MULTIVITAMINS/MINERALS THERAP 1 TAB PO SCH (20:10)
[2023-02-16] MEDS: CYANOCOBALAMIN 500 MCG TAB PO SCH (20:10)
[2023-02-17 04:01] VITALS: BP 143/67
[2023-02-17 06:34] LABS: HEMATOCRIT 37.8 % (42.0-52.0); HEMOGLOBIN 11.8 g/dl (13.5-17.5); MEAN CORPUSCULAR HEMOGLOBIN 27.6 pg (27.0-33.0); MEAN CORPUSCULAR HGB CONC 31.2 g/dl (32.0-36.5); MEAN CORPUSCULAR VOLUME 88.5 fl (80.0-96.0); PLATELET COUNT, AUTOMATED 379 10^3/uL (150-450); RED BLOOD COUNT 4.27 10^6/uL (4.30-6.10); WHITE BLOOD COUNT 7.8 10^3/uL (4.0-10.0)
[2023-02-17 07:02] LABS: BLOOD UREA NITROGEN 16 MG/DL (9-23); CALCIUM LEVEL 8.9 MG/DL (8.3-10.6); CARBON DIOXIDE LEVEL 28 MMOL/L (20-31); CHLORIDE LEVEL 105 MMOL/L (98-107); CREATININE FOR GFR 0.81 MG/DL (0.70-1.30); GLOMERULAR FILTRATION RATE > 60.0 (>49); GLUCOSE, FASTING 107 MG/DL (74-106); MAGNESIUM LEVEL 1.6 MG/DL (1.8-2.4); PHOSPHORUS LEVEL 4.2 MG/DL (2.4-5.1); POTASSIUM SERUM 5.1 MMOL/L (3.5-5.1); SODIUM LEVEL 140 MMOL/L (136-145)
[2023-02-17] MEDS: ADVAIR HFA 115/21MCG INHALER INH SCH ×2 (07:29→19:56)
[2023-02-17 08:19] VITALS: BP 138/71
[2023-02-17] MEDS: MAG SULF 1GM/100ML (MAG RUN) 1 GM in IV 1 EA IV SCH ×2 (08:19→10:13)
[2023-02-17] MEDS: MAGNESIUM OXIDE 400MG TAB (MAG-OX) PO SCH (08:20)
[2023-02-17] MEDS: VALSARTAN 40MG TABLET (DIOVAN) PO SCH (08:20)
[2023-02-17] MEDS: ATORVASTATIN 20 MG TAB PO SCH (08:21)
[2023-02-17] MEDS: CARVedilol 6.25 MG TAB PO SCH ×2 (08:21→20:31)
[2023-02-17 19:42] VITALS: BP 124/59
[2023-02-17] MEDS: CYANOCOBALAMIN 500 MCG TAB PO SCH (20:30)
[2023-02-17] MEDS: MULTIVITAMINS/MINERALS THERAP 1 TAB PO SCH (20:30)
[2023-02-17] MEDS: VITAMIN D 1,000 INTERNATIONAL UNITS TABLET PO SCH (20:30)
[2023-02-17] MEDS: ENOXAPARIN 40MG/0.4ML SYRINGE (J1650 PER 10MG) SC SCH (20:31)
[2023-02-18] VITALS (9 sets, daily range): BP systolic 111–154; BP diastolic 54–78
[2023-02-18 06:12] LABS: HEMATOCRIT 37.4 % (42.0-52.0); HEMOGLOBIN 11.8 g/dl (13.5-17.5); MEAN CORPUSCULAR HEMOGLOBIN 27.7 pg (27.0-33.0); MEAN CORPUSCULAR HGB CONC 31.6 g/dl (32.0-36.5); MEAN CORPUSCULAR VOLUME 87.8 fl (80.0-96.0); PLATELET COUNT, AUTOMATED 380 10^3/uL (150-450); RED BLOOD COUNT 4.26 10^6/uL (4.30-6.10); WHITE BLOOD COUNT 8.3 10^3/uL (4.0-10.0)
[2023-02-18 06:32] LABS: BLOOD UREA NITROGEN 16 MG/DL (9-23); CALCIUM LEVEL 9.2 MG/DL (8.3-10.6); CARBON DIOXIDE LEVEL 28 MMOL/L (20-31); CHLORIDE LEVEL 104 MMOL/L (98-107); CREATININE FOR GFR 0.78 MG/DL (0.70-1.30); GLOMERULAR FILTRATION RATE > 60.0 (>49); GLUCOSE, FASTING 115 MG/DL (74-106); MAGNESIUM LEVEL 1.5 MG/DL (1.8-2.4); POTASSIUM SERUM 5.1 MMOL/L (3.5-5.1); SODIUM LEVEL 139 MMOL/L (136-145)
[2023-02-18] MEDS: ADVAIR HFA 115/21MCG INHALER INH SCH ×2 (07:19→21:00)
[2023-02-18] MEDS ORDERED: MAG SULF 1GM/100ML (MAG RUN) 1 GM in IV 1 EA IV SCH (08:00)
[2023-02-18] MEDS: MAG SULF 1GM/100ML (MAG RUN) 1 GM in IV 1 EA IV SCH ×2 (08:52→10:08)
[2023-02-18] MEDS: VALSARTAN 40MG TABLET (DIOVAN) PO SCH (09:25)
[2023-02-18] MEDS: MAGNESIUM OXIDE 400MG TAB (MAG-OX) PO SCH (09:27)
[2023-02-18] MEDS: CARVedilol 6.25 MG TAB PO SCH ×2 (09:27→21:00)
[2023-02-18] MEDS: ATORVASTATIN 20 MG TAB PO SCH (09:27)
[2023-02-18] MEDS ORDERED: propofoL 200 MG/20 ML VIAL As Ordered ONE ×2 (17:52→19:32)
[2023-02-18] MEDS ORDERED: fentaNYL 100 MCG/2 ML INJECTION As Ordered ONE (17:52)
[2023-02-18] MEDS ORDERED: MIDAZOLAM INJ 2MG/2ML VIAL As Ordered ONE (17:52)
[2023-02-18] MEDS ORDERED: ONDANSETRON 4MG 2ML VIAL As Ordered ONE (17:52)
[2023-02-18] MEDS ORDERED: LIDOCAINE 2% 100MG/5ML SDV (FOR ANES.) As Ordered ONE (17:52)
[2023-02-18] MEDS: ENOXAPARIN 40MG/0.4ML SYRINGE (J1650 PER 10MG) SC SCH (17:54)
[2023-02-18] MEDS ORDERED: ceFAZolin 2 GM/D5W 50 ML IV BAG As Ordered ONE (18:27)
[2023-02-18] MEDS ORDERED: ACETAMINOPHEN 1000MG 100ML IV BAG As Ordered ONE (18:52)
[2023-02-18] MEDS ORDERED: ePHEDrine SULFATE 25 MG/5 ML(5MG/ML) SYRINGE As Ordered ONE (19:18)
[2023-02-18] MEDS ORDERED: oxyCODONE 5MG TAB PO PRN (19:45)
[2023-02-18] MEDS ORDERED: ONDANSETRON 4MG 2ML VIAL IV PRN (19:45)
[2023-02-18] MEDS ORDERED: LR 1,000 ML IV SCH (19:45)
[2023-02-18] MEDS ORDERED: fentaNYL 100 MCG/2 ML INJECTION IV PRN (19:45)
[2023-02-18] MEDS ORDERED: HYDROMORPHONE HCL 0.5 MG/ 0.5 ML SYRINGE IV PRN (19:45)
[2023-02-18] MEDS: MULTIVITAMINS/MINERALS THERAP 1 TAB PO SCH (21:20)
[2023-02-18] MEDS: CYANOCOBALAMIN 500 MCG TAB PO SCH (21:20)
[2023-02-18] MEDS: VITAMIN D 1,000 INTERNATIONAL UNITS TABLET PO SCH (21:20)
[2023-02-18] MEDS ORDERED: ENOXAPARIN 40MG/0.4ML SYRINGE (J1650 PER 10MG) SC ONE (22:55)
[2023-02-18] MEDS: MORPHINE 2 MG/ML 1ML VIAL IV PRN (23:34)
[2023-02-19] VITALS (13 sets, daily range): BP systolic 105–181; BP diastolic 57–98
[2023-02-19] MEDS: ACETAMINOPHEN TAB 650MG DOSE (2X325MG) PO PRN (00:19)
[2023-02-19] MEDS: PERCOCET 5MG/325MG TAB PO PRN ×2 (01:44→17:32)
[2023-02-19] MEDS: MORPHINE 2 MG/ML 1ML VIAL IV PRN (02:49)
[2023-02-19] MEDS ORDERED: HYDROMORPHONE HCL 0.5 MG/ 0.5 ML SYRINGE IV PRN ×2 (04:50→14:25)
[2023-02-19 05:28] LABS: HEMATOCRIT 39.1 % (42.0-52.0); HEMOGLOBIN 12.4 g/dl (13.5-17.5); MEAN CORPUSCULAR HGB CONC 31.7 g/dl (32.0-36.5); MEAN CORPUSCULAR VOLUME 88.3 fl (80.0-96.0); PLATELET COUNT, AUTOMATED 383 10^3/uL (150-450); RED BLOOD COUNT 4.43 10^6/uL (4.30-6.10); WHITE BLOOD COUNT 15.3 10^3/uL (4.0-10.0)
[2023-02-19 05:57] LABS: BLOOD UREA NITROGEN 19 MG/DL (9-23); CALCIUM LEVEL 8.8 MG/DL (8.3-10.6); CARBON DIOXIDE LEVEL 25 MMOL/L (20-31); CHLORIDE LEVEL 103 MMOL/L (98-107); CREATININE FOR GFR 0.84 MG/DL (0.70-1.30); GLOMERULAR FILTRATION RATE > 60.0 (>49); GLUCOSE, FASTING 161 MG/DL (74-106); MAGNESIUM LEVEL 1.5 MG/DL (1.8-2.4); POTASSIUM SERUM 5.6 MMOL/L (3.5-5.1); SODIUM LEVEL 135 MMOL/L (136-145)
[2023-02-19] MEDS ORDERED: MAG SULF 1GM/100ML (MAG RUN) 1 GM in IV 1 EA IV ONE (06:30)
[2023-02-19] MEDS: ADVAIR HFA 115/21MCG INHALER INH SCH ×2 (07:06→19:38)
[2023-02-19] MEDS ORDERED: HYDROMORPHONE HCL 0.5 MG/ 0.5 ML SYRINGE IV ONE ×2 (07:10→09:00)
[2023-02-19] MEDS ORDERED: ONDANSETRON 4MG 2ML VIAL IV PRN ×2 (07:15→14:25)
[2023-02-19] MEDS ORDERED: diphenhydrAMINE 50MG/ML VIAL IV PRN (07:15)
[2023-02-19] MEDS ORDERED: NALOXONE INJ 0.4MG/1ML VIAL IV PRN (07:15)
[2023-02-19] MEDS ORDERED: EPIDURAL/PCA KEYS XX PRN (07:15)
[2023-02-19] MEDS ORDERED: NS 1,000 ML IV SCH (07:15)
[2023-02-19] MEDS ORDERED: MORPHINE 1MG/ML IN 0.9% NACL 100ML IV BAG IV PRN (08:00)
[2023-02-19] MEDS: ATORVASTATIN 20 MG TAB PO SCH (08:26)
[2023-02-19] MEDS: MAGNESIUM OXIDE 400MG TAB (MAG-OX) PO SCH (08:26)
[2023-02-19] MEDS: CARVedilol 6.25 MG TAB PO SCH (08:26)
[2023-02-19] MEDS: VALSARTAN 40MG TABLET (DIOVAN) PO SCH (08:28)
[2023-02-19] MEDS: MAG SULF 1GM/100ML (MAG RUN) 1 GM in IV 1 EA IV SCH ×2 (08:51→11:14)
[2023-02-19] MEDS ORDERED: cloNIDine 0.2 MG TAB PO ONE (09:00)
[2023-02-19] MEDS ORDERED: NITROGLYCERIN 2% OINT 1 GM *U/D* PKT TOP ONE (09:00)
[2023-02-19] MEDS ORDERED: ONDANSETRON 4MG 2ML VIAL As Ordered ONE (11:44)
[2023-02-19] MEDS ORDERED: propofoL 200 MG/20 ML VIAL As Ordered ONE (11:44)
[2023-02-19] MEDS ORDERED: LIDOCAINE 2% 100MG/5ML SDV (FOR ANES.) As Ordered ONE (11:44)
[2023-02-19] MEDS ORDERED: MIDAZOLAM INJ 2MG/2ML VIAL As Ordered ONE (11:44)
[2023-02-19] MEDS ORDERED: fentaNYL 100 MCG/2 ML INJECTION As Ordered ONE (11:44)
[2023-02-19] MEDS ORDERED: CARVedilol 12.5 MG TAB PO ONE (12:05)
[2023-02-19] MEDS ORDERED: amLODIPine 5 MG TAB PO ONE (12:10)
[2023-02-19] MEDS ORDERED: ceFAZolin 2 GM/D5W 50 ML IV BAG As Ordered ONE (13:25)
[2023-02-19] MEDS ORDERED: PHENYLephrine 500MCG 5ML (100MCG/ML) SYRINGE As Ordered ONE (13:27)
[2023-02-19] MEDS ORDERED: ePHEDrine SULFATE 25 MG/5 ML(5MG/ML) SYRINGE As Ordered ONE ×2 (13:27→14:05)
[2023-02-19] MEDS ORDERED: PHENYLEPHRINE 10MG/ML 1ML VIAL As Ordered ONE (13:29)
[2023-02-19] MEDS ORDERED: fentaNYL 100 MCG/2 ML INJECTION IV PRN (14:25)
[2023-02-19] MEDS ORDERED: LR 1,000 ML IV SCH (14:25)
[2023-02-19] MEDS ORDERED: oxyCODONE 5MG TAB PO PRN (14:25)
[2023-02-19] MEDS: LACTOBACILLUS ACIDOPHILUS CAP (BACID) PO SCH (17:17)
[2023-02-19] MEDS: MORPHINE 4 MG/ML 1ML VIAL IV PRN ×2 (19:49→21:53)
[2023-02-19] MEDS: ceFAZolin SOD 2 GM in IV 1 EA IV SCH (21:51)
[2023-02-19] MEDS: MULTIVITAMINS/MINERALS THERAP 1 TAB PO SCH (21:52)
[2023-02-19] MEDS: VITAMIN D 1,000 INTERNATIONAL UNITS TABLET PO SCH (21:52)
[2023-02-19] MEDS: ENOXAPARIN 40MG/0.4ML SYRINGE (J1650 PER 10MG) SC SCH (21:52)
[2023-02-19] MEDS: CARVedilol 12.5 MG TAB PO SCH (21:52)
[2023-02-19] MEDS: CYANOCOBALAMIN 500 MCG TAB PO SCH (21:52)
[2023-02-20 01:30] VITALS: BP 120/64
[2023-02-20] MEDS: MORPHINE 4 MG/ML 1ML VIAL IV PRN ×2 (01:38→10:05)
[2023-02-20 05:00] VITALS: BP 118/62
[2023-02-20] MEDS: ceFAZolin SOD 2 GM in IV 1 EA IV SCH ×3 (05:01→20:04)
[2023-02-20 06:25] LABS: HEMATOCRIT 34.7 % (42.0-52.0); HEMOGLOBIN 10.9 g/dl (13.5-17.5); MEAN CORPUSCULAR HEMOGLOBIN 27.9 pg (27.0-33.0); MEAN CORPUSCULAR HGB CONC 31.4 g/dl (32.0-36.5); PLATELET COUNT, AUTOMATED 309 10^3/uL (150-450); WHITE BLOOD COUNT 12.7 10^3/uL (4.0-10.0)
[2023-02-20 06:49] LABS: BLOOD UREA NITROGEN 17 MG/DL (9-23); CALCIUM LEVEL 8.7 MG/DL (8.3-10.6); CARBON DIOXIDE LEVEL 26 MMOL/L (20-31); CHLORIDE LEVEL 100 MMOL/L (98-107); CREATININE FOR GFR 0.79 MG/DL (0.70-1.30); GLOMERULAR FILTRATION RATE > 60.0 (>49); GLUCOSE, FASTING 171 MG/DL (74-106); MAGNESIUM LEVEL 1.5 MG/DL (1.8-2.4); POTASSIUM SERUM 5.1 MMOL/L (3.5-5.1); SODIUM LEVEL 133 MMOL/L (136-145)
[2023-02-20] MEDS: ADVAIR HFA 115/21MCG INHALER INH SCH ×2 (07:22→19:46)
[2023-02-20] MEDS ORDERED: PERCOCET 5MG/325MG TAB PO PRN ×2 (08:10)
[2023-02-20] MEDS ORDERED: PERCOCET 5MG/325MG TAB PO ONE (08:30)
[2023-02-20] MEDS: CARVedilol 12.5 MG TAB PO SCH ×2 (09:00→20:04)
[2023-02-20] MEDS ORDERED: MAG SULF 1GM/100ML (MAG RUN) 1 GM in IV 1 EA IV ONE (09:00)
[2023-02-20] MEDS: LACTOBACILLUS ACIDOPHILUS CAP (BACID) PO SCH ×2 (09:27→17:25)
[2023-02-20] MEDS: MAGNESIUM OXIDE 400MG TAB (MAG-OX) PO SCH ×2 (09:29→20:05)
[2023-02-20] MEDS: ATORVASTATIN 20 MG TAB PO SCH (09:30)
[2023-02-20 10:00] VITALS: BP 140/55
[2023-02-20] MEDS: VALSARTAN 40MG TABLET (DIOVAN) PO SCH (10:06)
[2023-02-20 14:00] VITALS: BP 140/56
[2023-02-20 18:00] VITALS: BP 139/56
[2023-02-20] MEDS: ENOXAPARIN 40MG/0.4ML SYRINGE (J1650 PER 10MG) SC SCH (20:03)
[2023-02-20] MEDS: CYANOCOBALAMIN 500 MCG TAB PO SCH (20:04)
[2023-02-20] MEDS: VITAMIN D 1,000 INTERNATIONAL UNITS TABLET PO SCH (20:04)
[2023-02-20] MEDS: MULTIVITAMINS/MINERALS THERAP 1 TAB PO SCH (20:04)
[2023-02-20 21:00] VITALS: BP 128/52
[2023-02-21] MEDS: ceFAZolin SOD 2 GM in IV 1 EA IV SCH ×3 (04:48→21:11)
[2023-02-21 05:00] VITALS: BP 133/55
[2023-02-21] MEDS: ADVAIR HFA 115/21MCG INHALER INH SCH ×2 (07:45→19:56)
[2023-02-21] MEDS: CARVedilol 12.5 MG TAB PO SCH ×2 (09:00→21:10)
[2023-02-21] MEDS: ATORVASTATIN 20 MG TAB PO SCH (09:02)
[2023-02-21] MEDS: PERCOCET 5MG/325MG TAB PO PRN (09:02)
[2023-02-21] MEDS: MAGNESIUM OXIDE 400MG TAB (MAG-OX) PO SCH ×2 (09:03→21:09)
[2023-02-21] MEDS: LACTOBACILLUS ACIDOPHILUS CAP (BACID) PO SCH ×2 (09:03→18:20)
[2023-02-21] MEDS: VALSARTAN 40MG TABLET (DIOVAN) PO SCH (09:06)
[2023-02-21 10:00] VITALS: BP 128/57
[2023-02-21 14:00] VITALS: BP 113/48
[2023-02-21 20:41] VITALS: BP 124/54
[2023-02-21] MEDS: ACETAMINOPHEN TAB 650MG DOSE (2X325MG) PO PRN (21:07)
[2023-02-21] MEDS: CYANOCOBALAMIN 500 MCG TAB PO SCH (21:08)
[2023-02-21] MEDS: VITAMIN D 1,000 INTERNATIONAL UNITS TABLET PO SCH (21:08)
[2023-02-21] MEDS: MULTIVITAMINS/MINERALS THERAP 1 TAB PO SCH (21:09)
[2023-02-21] MEDS: ENOXAPARIN 40MG/0.4ML SYRINGE (J1650 PER 10MG) SC SCH (21:11)
[2023-02-21] MEDS ORDERED: NS 1,000 ML IV ONE (21:30)
[2023-02-21 22:29] LABS: BASO # 0.1 10^3/uL (0.0-0.2); BASO % 0.4 % (0.0-1.0); EOS # 0.1 10^3/uL (0.0-0.5); EOS % 0.4 % (0.0-3.0); HEMATOCRIT 31.8 % (42.0-52.0); HEMOGLOBIN 10.2 g/dl (13.5-17.5); LYMPH # 2.6 10^3/uL (1.5-5.0); LYMPH % 15.4 % (24.0-44.0); MEAN CORPUSCULAR HGB CONC 32.1 g/dl (32.0-36.5); MEAN CORPUSCULAR VOLUME 87.4 fl (80.0-96.0); MONO % 14.7 % (2.0-8.0); NEUTROPHILS # 11.4 10^3/uL (1.5-8.5); NEUTROPHILS % 68.7 % (36.0-66.0); PLATELET COUNT, AUTOMATED 312 10^3/uL (150-450); RED BLOOD COUNT 3.64 10^6/uL (4.30-6.10); WHITE BLOOD COUNT 16.6 10^3/uL (4.0-10.0)
[2023-02-21 22:55] LABS: BLOOD UREA NITROGEN 24 MG/DL (9-23); CALCIUM LEVEL 8.1 MG/DL (8.3-10.6); CARBON DIOXIDE LEVEL 26 MMOL/L (20-31); CHLORIDE LEVEL 100 MMOL/L (98-107); CREATININE FOR GFR 0.93 MG/DL (0.70-1.30); GLOMERULAR FILTRATION RATE > 60.0 (>49); GLUCOSE, FASTING 201 MG/DL (74-106); MAGNESIUM LEVEL 1.6 MG/DL (1.8-2.4); POTASSIUM SERUM 4.7 MMOL/L (3.5-5.1); SODIUM LEVEL 133 MMOL/L (136-145)
[2023-02-21 23:00] LABS: MONO # 2.4 10^3/uL (0.0-0.8)
[2023-02-22] VITALS (10 sets, daily range): BP systolic 91–152; BP diastolic 40–66
[2023-02-22] MEDS ORDERED: MAG SULF 1GM/100ML (MAG RUN) 1 GM in IV 1 EA IV ONE (00:25)
[2023-02-22 00:52] LABS: APPEARANCE, URINE HAZY (CLEAR); BACTERIA, URINE AUTO 1+ (NEGATIVE); BILIRUBIN, URINE AUTO NEGATIVE (NEGATIVE); BLOOD, URINE BLOOD NEGATIVE (NEGATIVE); COLOR, URINE YELLOW (YELLOW); GLUCOSE, URINE (UA) AUTO NEGATIVE (NEGATIVE); KETONE, URINE AUTO TRACE mg/dL (NEGATIVE); LEUKOCYTE ESTERASE, URINE AUTO 2+ (NEGATIVE); MUCUS, URINE SMALL (NEGATIVE); NITRITE, URINE AUTO NEGATIVE (NEGATIVE); PROTEIN, URINE AUTO 1+ mg/dL (NEGATIVE); RBC, URINE AUTO 2 /HPF (0-3); SPECIFIC GRAVITY URINE AUTO 1.029 (1.002-1.035); SQUAMOUS EPITHELIAL CELL UR AU 1 /HPF (0-6); UROBILINOGEN, URINE AUTO 0.2 mg/dL (0.0-2.0); WBC, URINE AUTO 3 /HPF (0-3)
[2023-02-22] MEDS: ceFAZolin SOD 2 GM in IV 1 EA IV SCH (05:51)
[2023-02-22] MEDS: ADVAIR HFA 115/21MCG INHALER INH SCH ×2 (07:30→20:07)
[2023-02-22] MEDS ORDERED: VANCOMYCIN HCL 1,000 MG, VIAL MATE ADAPTER 1 EACH in D5W 250 ML IV ONE (08:00)
[2023-02-22 08:26] LABS: HEMATOCRIT 31.3 % (42.0-52.0); HEMOGLOBIN 10.2 g/dl (13.5-17.5); MEAN CORPUSCULAR HEMOGLOBIN 28.6 pg (27.0-33.0); MEAN CORPUSCULAR HGB CONC 32.6 g/dl (32.0-36.5); MEAN CORPUSCULAR VOLUME 87.7 fl (80.0-96.0); PLATELET COUNT, AUTOMATED 327 10^3/uL (150-450); RED BLOOD COUNT 3.57 10^6/uL (4.30-6.10); WHITE BLOOD COUNT 16.2 10^3/uL (4.0-10.0)
[2023-02-22] MEDS ORDERED: ISOVUE-370 76% 100ML VIAL As Ordered ONE (08:30)
[2023-02-22] MEDS: MAGNESIUM OXIDE 400MG TAB (MAG-OX) PO SCH ×2 (08:43→20:14)
[2023-02-22] MEDS: CARVedilol 12.5 MG TAB PO SCH (08:43)
[2023-02-22] MEDS: VALSARTAN 40MG TABLET (DIOVAN) PO SCH (08:43)
[2023-02-22] MEDS: ATORVASTATIN 20 MG TAB PO SCH (08:48)
[2023-02-22] MEDS: LACTOBACILLUS ACIDOPHILUS CAP (BACID) PO SCH ×2 (08:48→17:21)
[2023-02-22] MEDS: SENOKOT S TAB PO PRN ×2 (08:49→21:13)
[2023-02-22] MEDS: ACETAMINOPHEN TAB 650MG DOSE (2X325MG) PO PRN ×2 (08:50→17:30)
[2023-02-22 08:56] LABS: ATYPICAL LYMPH 3 % (0-5); LYMPHOCYTES 18 % (16-44); MONOCYTES 11 % (0-5); NEUTROPHILS 67 % (28-66); PLATELET ESTIMATE NORMAL (NORMAL)
[2023-02-22 08:57] LABS: ANISOCYTOSIS 1+; POIKILOCYTOSIS 1+; SCHISTOCYTES 1+
[2023-02-22 08:59] LABS: OVALOCYTES 1+
[2023-02-22] MEDS ORDERED: VANCOMYCIN HCL 750 MG, VIAL MATE ADAPTER 1 EACH in D5W 250 ML IV ONE (09:00)
[2023-02-22 09:01] LABS: ALBUMIN 2.3 G/DL (3.2-5.2); ALKALINE PHOSPHATASE 127 U/L (46-116); ALT/SGPT 12 U/L (7.0-40); AST/SGOT 33 U/L (<34); BILIRUBIN,TOTAL 0.4 MG/DL (0.3-1.2); BLOOD UREA NITROGEN 21 MG/DL (9-23); CALCIUM LEVEL 8.5 MG/DL (8.3-10.6); CARBON DIOXIDE LEVEL 28 MMOL/L (20-31); CHLORIDE LEVEL 101 MMOL/L (98-107); CREATININE FOR GFR 0.79 MG/DL (0.70-1.30); GLOMERULAR FILTRATION RATE > 60.0 (>49); GLUCOSE, FASTING 146 MG/DL (74-106); POTASSIUM SERUM 4.9 MMOL/L (3.5-5.1); SODIUM LEVEL 134 MMOL/L (136-145); TOTAL PROTEIN 5.8 G/DL (5.7-8.2)
[2023-02-22 09:18] LABS: ERYTHROCYTE SEDIMENTATION RATE 110 mm/hr (0-20)
[2023-02-22] MEDS: PERCOCET 5MG/325MG TAB PO PRN (10:24)
[2023-02-22] MEDS ORDERED: KETOROLAC 30 MG/ML 1ML VIAL IV ONE (11:45)
[2023-02-22] MEDS ORDERED: NS 1,000 ML IV ONE ×2 (15:00→23:05)
[2023-02-22] MEDS: CEFEPIME HCL 2 GM in D5W MINI-BAG PLUS 50 ML IV SCH (15:49)
[2023-02-22] MEDS ORDERED: NS 500 ML IV ONE (15:55)
[2023-02-22] MEDS ORDERED: MIDODRINE 5 MG TAB PO ONE (16:00)
[2023-02-22] MEDS: VANCOMYCIN HCL 1,000 MG, VIAL MATE ADAPTER 1 EACH in NS 250 ML IV SCH (20:13)
[2023-02-22] MEDS: VITAMIN D 1,000 INTERNATIONAL UNITS TABLET PO SCH (20:14)
[2023-02-22] MEDS: MULTIVITAMINS/MINERALS THERAP 1 TAB PO SCH (20:14)
[2023-02-22] MEDS: CYANOCOBALAMIN 500 MCG TAB PO SCH (20:14)
[2023-02-22] MEDS: ENOXAPARIN 40MG/0.4ML SYRINGE (J1650 PER 10MG) SC SCH (20:14)
[2023-02-23] VITALS (8 sets, daily range): BP systolic 107–127; BP diastolic 52–60
[2023-02-23] MEDS: ACETAMINOPHEN TAB 650MG DOSE (2X325MG) PO PRN ×3 (02:19→18:32)
[2023-02-23] MEDS: CEFEPIME HCL 2 GM in D5W MINI-BAG PLUS 50 ML IV SCH ×2 (03:58→15:35)
[2023-02-23 05:57] LABS: BASO # 0.1 10^3/uL (0.0-0.2); BASO % 0.6 % (0.0-1.0); EOS # 0.4 10^3/uL (0.0-0.5); EOS % 2.6 % (0.0-3.0); HEMATOCRIT 27.6 % (42.0-52.0); HEMOGLOBIN 8.8 g/dl (13.5-17.5); LYMPH # 2.5 10^3/uL (1.5-5.0); LYMPH % 18.7 % (24.0-44.0); MEAN CORPUSCULAR HEMOGLOBIN 28.1 pg (27.0-33.0); MEAN CORPUSCULAR HGB CONC 31.9 g/dl (32.0-36.5); MEAN CORPUSCULAR VOLUME 88.2 fl (80.0-96.0); MONO # 1.4 10^3/uL (0.0-0.8); MONO % 10.3 % (2.0-8.0); NEUTROPHILS % 67.4 % (36.0-66.0); PLATELET COUNT, AUTOMATED 314 10^3/uL (150-450); RED BLOOD COUNT 3.13 10^6/uL (4.30-6.10); WHITE BLOOD COUNT 13.4 10^3/uL (4.0-10.0)
[2023-02-23 06:29] LABS: BLOOD UREA NITROGEN 37 MG/DL (9-23); CARBON DIOXIDE LEVEL 25 MMOL/L (20-31); CHLORIDE LEVEL 106 MMOL/L (98-107); CREATININE FOR GFR 0.78 MG/DL (0.70-1.30); GLOMERULAR FILTRATION RATE > 60.0 (>49); GLUCOSE, FASTING 140 MG/DL (74-106); POTASSIUM SERUM 4.7 MMOL/L (3.5-5.1); SODIUM LEVEL 136 MMOL/L (136-145)
[2023-02-23] MEDS: ADVAIR HFA 115/21MCG INHALER INH SCH ×2 (07:27→20:56)
[2023-02-23] MEDS: VANCOMYCIN HCL 1,000 MG, VIAL MATE ADAPTER 1 EACH in NS 250 ML IV SCH ×2 (07:59→21:41)
[2023-02-23] MEDS: MAGNESIUM OXIDE 400MG TAB (MAG-OX) PO SCH ×2 (08:05→21:02)
[2023-02-23] MEDS: ATORVASTATIN 20 MG TAB PO SCH (08:05)
[2023-02-23] MEDS: SENOKOT S TAB PO PRN (08:05)
[2023-02-23] MEDS: LACTOBACILLUS ACIDOPHILUS CAP (BACID) PO SCH ×2 (08:05→17:17)
[2023-02-23] MEDS ORDERED: NS 1,000 ML IV SCH (10:40)
[2023-02-23] MEDS ORDERED: KETOROLAC 30 MG/ML 1ML VIAL IV ONE (10:45)
[2023-02-23] MEDS: MULTIVITAMINS/MINERALS THERAP 1 TAB PO SCH (21:02)
[2023-02-23] MEDS: VITAMIN D 1,000 INTERNATIONAL UNITS TABLET PO SCH (21:02)
[2023-02-23] MEDS: CYANOCOBALAMIN 500 MCG TAB PO SCH (21:02)
[2023-02-23] MEDS: ENOXAPARIN 40MG/0.4ML SYRINGE (J1650 PER 10MG) SC SCH (21:03)
[2023-02-24] VITALS: BP 136/55
[2023-02-24] MEDS: CEFEPIME HCL 2 GM in D5W MINI-BAG PLUS 50 ML IV SCH ×2 (03:11→15:13)
[2023-02-24] MEDS: ACETAMINOPHEN TAB 650MG DOSE (2X325MG) PO PRN (03:18)
[2023-02-24 04:00] VITALS: BP 122/50
[2023-02-24 06:34] LABS: BASO # 0.1 10^3/uL (0.0-0.2); BASO % 0.7 % (0.0-1.0); EOS # 0.4 10^3/uL (0.0-0.5); EOS % 4.1 % (0.0-3.0); HEMATOCRIT 26.3 % (42.0-52.0); HEMOGLOBIN 8.2 g/dl (13.5-17.5); LYMPH # 1.8 10^3/uL (1.5-5.0); LYMPH % 17.5 % (24.0-44.0); MEAN CORPUSCULAR HEMOGLOBIN 27.6 pg (27.0-33.0); MEAN CORPUSCULAR HGB CONC 31.2 g/dl (32.0-36.5); MEAN CORPUSCULAR VOLUME 88.6 fl (80.0-96.0); MONO % 9.4 % (2.0-8.0); NEUTROPHILS % 67.8 % (36.0-66.0); PLATELET COUNT, AUTOMATED 366 10^3/uL (150-450); RED BLOOD COUNT 2.97 10^6/uL (4.30-6.10); WHITE BLOOD COUNT 10.4 10^3/uL (4.0-10.0)
[2023-02-24 06:52] LABS: BLOOD UREA NITROGEN 28 MG/DL (9-23); CALCIUM LEVEL 7.9 MG/DL (8.3-10.6); CARBON DIOXIDE LEVEL 24 MMOL/L (20-31); CHLORIDE LEVEL 108 MMOL/L (98-107); CREATININE FOR GFR 0.76 MG/DL (0.70-1.30); GLOMERULAR FILTRATION RATE > 60.0 (>49); GLUCOSE, FASTING 162 MG/DL (74-106); POTASSIUM SERUM 4.5 MMOL/L (3.5-5.1); SODIUM LEVEL 138 MMOL/L (136-145)
[2023-02-24] MEDS: ADVAIR HFA 115/21MCG INHALER INH SCH ×2 (07:21→20:37)
[2023-02-24] MEDS: VANCOMYCIN HCL 1,000 MG, VIAL MATE ADAPTER 1 EACH in NS 250 ML IV SCH (08:01)
[2023-02-24] MEDS: LACTOBACILLUS ACIDOPHILUS CAP (BACID) PO SCH ×2 (08:01→17:34)
[2023-02-24] MEDS: MAGNESIUM OXIDE 400MG TAB (MAG-OX) PO SCH ×2 (08:01→20:43)
[2023-02-24] MEDS: ATORVASTATIN 20 MG TAB PO SCH (08:01)
[2023-02-24 10:00] VITALS: BP 149/63
[2023-02-24] MEDS: PERCOCET 5MG/325MG TAB PO PRN ×2 (11:30→17:35)
[2023-02-24 14:00] VITALS: BP 117/48
[2023-02-24] MEDS: NEOSPORIN TOP OINT 15GM TOP SCH (15:13)
[2023-02-24 16:00] VITALS: BP 114/51
[2023-02-24] MEDS: VITAMIN D 1,000 INTERNATIONAL UNITS TABLET PO SCH (20:43)
[2023-02-24] MEDS: MULTIVITAMINS/MINERALS THERAP 1 TAB PO SCH (20:43)
[2023-02-24] MEDS: CYANOCOBALAMIN 500 MCG TAB PO SCH (20:43)
[2023-02-24] MEDS: ENOXAPARIN 40MG/0.4ML SYRINGE (J1650 PER 10MG) SC SCH (20:43)
[2023-02-24 22:00] VITALS: BP 134/60
[2023-02-25] VITALS (8 sets, daily range): BP systolic 115–134; BP diastolic 43–66
[2023-02-25] MEDS: PERCOCET 5MG/325MG TAB PO PRN ×3 (02:59→17:30)
[2023-02-25] MEDS: CEFEPIME HCL 2 GM in D5W MINI-BAG PLUS 50 ML IV SCH ×2 (04:31→16:24)
[2023-02-25 05:49] LABS: BASO # 0.1 10^3/uL (0.0-0.2); EOS # 0.5 10^3/uL (0.0-0.5); EOS % 5.3 % (0.0-3.0); HEMATOCRIT 24.9 % (42.0-52.0); HEMOGLOBIN 7.9 g/dl (13.5-17.5); LYMPH # 2.8 10^3/uL (1.5-5.0); MEAN CORPUSCULAR HEMOGLOBIN 28.2 pg (27.0-33.0); MEAN CORPUSCULAR HGB CONC 31.7 g/dl (32.0-36.5); MEAN CORPUSCULAR VOLUME 88.9 fl (80.0-96.0); MONO % 10.6 % (2.0-8.0); NEUTROPHILS # 5.3 10^3/uL (1.5-8.5); NEUTROPHILS % 53.6 % (36.0-66.0); PLATELET COUNT, AUTOMATED 402 10^3/uL (150-450); WHITE BLOOD COUNT 9.8 10^3/uL (4.0-10.0)
[2023-02-25 06:11] LABS: BLOOD UREA NITROGEN 21 MG/DL (9-23); CARBON DIOXIDE LEVEL 23 MMOL/L (20-31); CHLORIDE LEVEL 109 MMOL/L (98-107); CREATININE FOR GFR 0.67 MG/DL (0.70-1.30); GLOMERULAR FILTRATION RATE > 60.0 (>49); GLUCOSE, FASTING 159 MG/DL (74-106); POTASSIUM SERUM 4.4 MMOL/L (3.5-5.1); SODIUM LEVEL 137 MMOL/L (136-145)
[2023-02-25] MEDS: ADVAIR HFA 115/21MCG INHALER INH SCH ×2 (07:28→20:51)
[2023-02-25] MEDS: ATORVASTATIN 20 MG TAB PO SCH (08:12)
[2023-02-25] MEDS: LACTOBACILLUS ACIDOPHILUS CAP (BACID) PO SCH ×2 (08:12→17:27)
[2023-02-25] MEDS: MAGNESIUM OXIDE 400MG TAB (MAG-OX) PO SCH ×2 (08:12→20:12)
[2023-02-25] MEDS: CARVedilol 3.125 MG TAB PO SCH (14:54)
[2023-02-25] MEDS: MULTIVITAMINS/MINERALS THERAP 1 TAB PO SCH (20:11)
[2023-02-25] MEDS: CYANOCOBALAMIN 500 MCG TAB PO SCH (20:11)
[2023-02-25] MEDS: VITAMIN D 1,000 INTERNATIONAL UNITS TABLET PO SCH (20:11)
[2023-02-25] MEDS: ENOXAPARIN 40MG/0.4ML SYRINGE (J1650 PER 10MG) SC SCH (20:12)
[2023-02-26] VITALS: BP 138/65
[2023-02-26] MEDS: CEFEPIME HCL 2 GM in D5W MINI-BAG PLUS 50 ML IV SCH (03:35)
[2023-02-26 04:00] VITALS: BP 142/63
[2023-02-26 06:35] LABS: BASO # 0.1 10^3/uL (0.0-0.2); EOS # 0.5 10^3/uL (0.0-0.5); HEMATOCRIT 26.4 % (42.0-52.0); HEMOGLOBIN 8.1 g/dl (13.5-17.5); LYMPH % 29.5 % (24.0-44.0); MEAN CORPUSCULAR HEMOGLOBIN 27.3 pg (27.0-33.0); MEAN CORPUSCULAR HGB CONC 30.7 g/dl (32.0-36.5); MEAN CORPUSCULAR VOLUME 88.9 fl (80.0-96.0); MONO # 1.1 10^3/uL (0.0-0.8); MONO % 10.7 % (2.0-8.0); NEUTROPHILS # 5.5 10^3/uL (1.5-8.5); NEUTROPHILS % 53.1 % (36.0-66.0); PLATELET COUNT, AUTOMATED 486 10^3/uL (150-450); RED BLOOD COUNT 2.97 10^6/uL (4.30-6.10); WHITE BLOOD COUNT 10.3 10^3/uL (4.0-10.0)
[2023-02-26 06:58] LABS: BLOOD UREA NITROGEN 16 MG/DL (9-23); CALCIUM LEVEL 8.5 MG/DL (8.3-10.6); CARBON DIOXIDE LEVEL 27 MMOL/L (20-31); CHLORIDE LEVEL 106 MMOL/L (98-107); CREATININE FOR GFR 0.69 MG/DL (0.70-1.30); GLOMERULAR FILTRATION RATE > 60.0 (>49); GLUCOSE, FASTING 121 MG/DL (74-106); MAGNESIUM LEVEL 1.7 MG/DL (1.8-2.4); PHOSPHORUS LEVEL 3.6 MG/DL (2.4-5.1); POTASSIUM SERUM 4.8 MMOL/L (3.5-5.1); SODIUM LEVEL 138 MMOL/L (136-145)
[2023-02-26] MEDS: ADVAIR HFA 115/21MCG INHALER INH SCH ×2 (07:35→19:29)
[2023-02-26] MEDS: ATORVASTATIN 20 MG TAB PO SCH (08:58)
[2023-02-26] MEDS: LACTOBACILLUS ACIDOPHILUS CAP (BACID) PO SCH ×2 (08:58→17:50)
[2023-02-26] MEDS: MAGNESIUM OXIDE 400MG TAB (MAG-OX) PO SCH ×2 (08:58→21:34)
[2023-02-26] MEDS: CARVedilol 3.125 MG TAB PO SCH (08:59)
[2023-02-26 10:00] VITALS: BP 136/59
[2023-02-26] MEDS: PERCOCET 5MG/325MG TAB PO PRN (10:48)
[2023-02-26 14:00] VITALS: BP 111/58
[2023-02-26] MEDS: NEOSPORIN TOP OINT 15GM TOP SCH (15:10)
[2023-02-26 18:00] VITALS: BP 144/65
[2023-02-26 20:00] VITALS: BP 109/50
[2023-02-26] MEDS: ENOXAPARIN 40MG/0.4ML SYRINGE (J1650 PER 10MG) SC SCH (21:33)
[2023-02-26] MEDS: ENTRESTO 24-26MG TABLET (SACUBITRIL/VALSARTAN) PO SCH (21:33)
[2023-02-26] MEDS: CYANOCOBALAMIN 500 MCG TAB PO SCH (21:34)
[2023-02-26] MEDS: DOXYCYCLINE HYCLATE 100MG TABLET PO SCH (21:34)
[2023-02-26] MEDS: MULTIVITAMINS/MINERALS THERAP 1 TAB PO SCH (21:34)
[2023-02-26] MEDS: AUGMENTIN 875 MG TAB PO SCH (21:34)
[2023-02-26] MEDS: VITAMIN D 1,000 INTERNATIONAL UNITS TABLET PO SCH (21:34)
[2023-02-27] VITALS: BP 146/67
[2023-02-27 03:45] VITALS: BP 147/68
[2023-02-27] MEDS: ADVAIR HFA 115/21MCG INHALER INH SCH ×2 (07:22→19:32)
[2023-02-27] MEDS: CARVedilol 3.125 MG TAB PO SCH (09:00)
[2023-02-27] MEDS: PERCOCET 5MG/325MG TAB PO PRN ×2 (09:07→16:36)
[2023-02-27] MEDS: ATORVASTATIN 20 MG TAB PO SCH (09:07)
[2023-02-27] MEDS: ENTRESTO 24-26MG TABLET (SACUBITRIL/VALSARTAN) PO SCH ×2 (09:08→20:47)
[2023-02-27] MEDS: MAGNESIUM OXIDE 400MG TAB (MAG-OX) PO SCH ×2 (09:08→20:47)
[2023-02-27] MEDS: LACTOBACILLUS ACIDOPHILUS CAP (BACID) PO SCH ×2 (09:08→18:08)
[2023-02-27] MEDS: AUGMENTIN 875 MG TAB PO SCH ×2 (09:08→20:47)
[2023-02-27] MEDS: DOXYCYCLINE HYCLATE 100MG TABLET PO SCH ×2 (09:08→20:48)
[2023-02-27] MEDS: MULTIVITAMINS/MINERALS THERAP 1 TAB PO SCH (20:48)
[2023-02-27] MEDS: CYANOCOBALAMIN 500 MCG TAB PO SCH (20:48)
[2023-02-27] MEDS: ENOXAPARIN 40MG/0.4ML SYRINGE (J1650 PER 10MG) SC SCH (20:49)
[2023-02-27] MEDS: VITAMIN D 1,000 INTERNATIONAL UNITS TABLET PO SCH (20:49)
[2023-02-28 06:00] VITALS: BP 122/62
[2023-02-28 06:30] LABS: BASO # 0.1 10^3/uL (0.0-0.2); BASO % 0.9 % (0.0-1.0); EOS # 0.4 10^3/uL (0.0-0.5); EOS % 3.7 % (0.0-3.0); HEMATOCRIT 29.7 % (42.0-52.0); HEMOGLOBIN 9.3 g/dl (13.5-17.5); LYMPH # 3.1 10^3/uL (1.5-5.0); LYMPH % 26.3 % (24.0-44.0); MEAN CORPUSCULAR HEMOGLOBIN 27.7 pg (27.0-33.0); MEAN CORPUSCULAR HGB CONC 31.3 g/dl (32.0-36.5); MEAN CORPUSCULAR VOLUME 88.4 fl (80.0-96.0); MONO # 1.4 10^3/uL (0.0-0.8); MONO % 11.9 % (2.0-8.0); NEUTROPHILS # 6.6 10^3/uL (1.5-8.5); NEUTROPHILS % 56.5 % (36.0-66.0); PLATELET COUNT, AUTOMATED 707 10^3/uL (150-450); RED BLOOD COUNT 3.36 10^6/uL (4.30-6.10); WHITE BLOOD COUNT 11.7 10^3/uL (4.0-10.0)
[2023-02-28 06:52] LABS: BLOOD UREA NITROGEN 12 MG/DL (9-23); CALCIUM LEVEL 8.6 MG/DL (8.3-10.6); CARBON DIOXIDE LEVEL 30 MMOL/L (20-31); CHLORIDE LEVEL 103 MMOL/L (98-107); CREATININE FOR GFR 0.71 MG/DL (0.70-1.30); GLOMERULAR FILTRATION RATE > 60.0 (>49); GLUCOSE, FASTING 133 MG/DL (74-106); POTASSIUM SERUM 5.5 MMOL/L (3.5-5.1); SODIUM LEVEL 137 MMOL/L (136-145)
[2023-02-28] MEDS: ADVAIR HFA 115/21MCG INHALER INH SCH ×2 (07:18→19:21)
[2023-02-28] MEDS: LACTOBACILLUS ACIDOPHILUS CAP (BACID) PO SCH ×2 (07:41→17:17)
[2023-02-28] MEDS: PERCOCET 5MG/325MG TAB PO PRN ×3 (07:42→20:38)
[2023-02-28] MEDS: AUGMENTIN 875 MG TAB PO SCH ×2 (08:18→20:36)
[2023-02-28] MEDS: ENTRESTO 24-26MG TABLET (SACUBITRIL/VALSARTAN) PO SCH ×2 (08:18→20:37)
[2023-02-28] MEDS: MAGNESIUM OXIDE 400MG TAB (MAG-OX) PO SCH ×2 (08:19→20:36)
[2023-02-28] MEDS: DOXYCYCLINE HYCLATE 100MG TABLET PO SCH ×2 (08:19→20:37)
[2023-02-28] MEDS: CARVedilol 3.125 MG TAB PO SCH (08:19)
[2023-02-28] MEDS: ATORVASTATIN 20 MG TAB PO SCH (08:19)
[2023-02-28] MEDS: NEOSPORIN TOP OINT 15GM TOP SCH (08:20)
[2023-02-28] MEDS: VITAMIN D 1,000 INTERNATIONAL UNITS TABLET PO SCH (20:36)
[2023-02-28] MEDS: CYANOCOBALAMIN 500 MCG TAB PO SCH (20:37)
[2023-02-28] MEDS: ENOXAPARIN 40MG/0.4ML SYRINGE (J1650 PER 10MG) SC SCH (20:37)
[2023-02-28] MEDS: MULTIVITAMINS/MINERALS THERAP 1 TAB PO SCH (20:37)
[2023-02-28 20:40] VITALS: BP 125/65
[2023-03-01 05:43] VITALS: BP 127/62
[2023-03-01 06:10] LABS: BASO # 0.1 10^3/uL (0.0-0.2); EOS # 0.4 10^3/uL (0.0-0.5); EOS % 3.7 % (0.0-3.0); HEMATOCRIT 29.2 % (42.0-52.0); HEMOGLOBIN 9.1 g/dl (13.5-17.5); LYMPH # 3.2 10^3/uL (1.5-5.0); LYMPH % 32.4 % (24.0-44.0); MEAN CORPUSCULAR HEMOGLOBIN 27.7 pg (27.0-33.0); MEAN CORPUSCULAR HGB CONC 31.2 g/dl (32.0-36.5); MONO # 1.1 10^3/uL (0.0-0.8); MONO % 11.2 % (2.0-8.0); NEUTROPHILS # 5.1 10^3/uL (1.5-8.5); NEUTROPHILS % 50.7 % (36.0-66.0); PLATELET COUNT, AUTOMATED 795 10^3/uL (150-450); RED BLOOD COUNT 3.28 10^6/uL (4.30-6.10)
[2023-03-01 06:37] LABS: BLOOD UREA NITROGEN 12 MG/DL (9-23); CALCIUM LEVEL 8.8 MG/DL (8.3-10.6); CARBON DIOXIDE LEVEL 30 MMOL/L (20-31); CHLORIDE LEVEL 102 MMOL/L (98-107); CREATININE FOR GFR 0.68 MG/DL (0.70-1.30); GLOMERULAR FILTRATION RATE > 60.0 (>49); GLUCOSE, FASTING 124 MG/DL (74-106); POTASSIUM SERUM 5.5 MMOL/L (3.5-5.1); SODIUM LEVEL 137 MMOL/L (136-145)
[2023-03-01] MEDS: ADVAIR HFA 115/21MCG INHALER INH SCH ×2 (07:16→18:51)
[2023-03-01] MEDS: CARVedilol 3.125 MG TAB PO SCH (08:39)
[2023-03-01] MEDS: ATORVASTATIN 20 MG TAB PO SCH (08:40)
[2023-03-01] MEDS: MAGNESIUM OXIDE 400MG TAB (MAG-OX) PO SCH ×2 (08:40→20:34)
[2023-03-01] MEDS: AUGMENTIN 875 MG TAB PO SCH ×2 (08:40→20:34)
[2023-03-01] MEDS: PERCOCET 5MG/325MG TAB PO PRN ×2 (08:40→17:43)
[2023-03-01] MEDS: DOXYCYCLINE HYCLATE 100MG TABLET PO SCH ×2 (08:40→20:34)
[2023-03-01] MEDS: ENTRESTO 24-26MG TABLET (SACUBITRIL/VALSARTAN) PO SCH ×2 (08:40→20:34)
[2023-03-01] MEDS: LACTOBACILLUS ACIDOPHILUS CAP (BACID) PO SCH ×2 (08:41→17:42)
[2023-03-01] MEDS: VITAMIN D 1,000 INTERNATIONAL UNITS TABLET PO SCH (20:34)
[2023-03-01] MEDS: CYANOCOBALAMIN 500 MCG TAB PO SCH (20:34)
[2023-03-01] MEDS: MULTIVITAMINS/MINERALS THERAP 1 TAB PO SCH (20:34)
[2023-03-01] MEDS: ENOXAPARIN 40MG/0.4ML SYRINGE (J1650 PER 10MG) SC SCH (20:34)
[2023-03-02 05:54] VITALS: BP 125/61
[2023-03-02 06:16] LABS: BLOOD UREA NITROGEN 13 MG/DL (9-23); CALCIUM LEVEL 8.4 MG/DL (8.3-10.6); CARBON DIOXIDE LEVEL 30 MMOL/L (20-31); CHLORIDE LEVEL 103 MMOL/L (98-107); CREATININE FOR GFR 0.76 MG/DL (0.70-1.30); GLOMERULAR FILTRATION RATE > 60.0 (>49); GLUCOSE, FASTING 120 MG/DL (74-106); POTASSIUM SERUM 5.7 MMOL/L (3.5-5.1); SODIUM LEVEL 137 MMOL/L (136-145)
[2023-03-02] MEDS: ADVAIR HFA 115/21MCG INHALER INH SCH ×2 (07:24→18:56)
[2023-03-02] MEDS: PERCOCET 5MG/325MG TAB PO PRN ×3 (08:10→22:15)
[2023-03-02] MEDS: LACTOBACILLUS ACIDOPHILUS CAP (BACID) PO SCH ×2 (08:10→16:40)
[2023-03-02] MEDS: AUGMENTIN 875 MG TAB PO SCH ×2 (09:44→22:00)
[2023-03-02] MEDS: DOXYCYCLINE HYCLATE 100MG TABLET PO SCH ×2 (09:44→22:01)
[2023-03-02] MEDS: MAGNESIUM OXIDE 400MG TAB (MAG-OX) PO SCH ×2 (09:44→22:00)
[2023-03-02] MEDS: ATORVASTATIN 20 MG TAB PO SCH (09:45)
[2023-03-02] MEDS: CARVedilol 3.125 MG TAB PO SCH (09:45)
[2023-03-02] MEDS: NEOSPORIN TOP OINT 15GM TOP SCH (09:46)
[2023-03-02] MEDS: VITAMIN D 1,000 INTERNATIONAL UNITS TABLET PO SCH (22:01)
[2023-03-02] MEDS: CYANOCOBALAMIN 500 MCG TAB PO SCH (22:01)
[2023-03-02] MEDS: ENOXAPARIN 40MG/0.4ML SYRINGE (J1650 PER 10MG) SC SCH (22:01)
[2023-03-02] MEDS: MULTIVITAMINS/MINERALS THERAP 1 TAB PO SCH (22:01)
[2023-03-03 06:00] VITALS: BP 117/57
[2023-03-03 06:22] LABS: BLOOD UREA NITROGEN 17 MG/DL (9-23); CALCIUM LEVEL 8.9 MG/DL (8.3-10.6); CARBON DIOXIDE LEVEL 29 MMOL/L (20-31); CHLORIDE LEVEL 103 MMOL/L (98-107); CREATININE FOR GFR 0.77 MG/DL (0.70-1.30); GLOMERULAR FILTRATION RATE > 60.0 (>49); GLUCOSE, FASTING 111 MG/DL (74-106); POTASSIUM SERUM 5.2 MMOL/L (3.5-5.1); SODIUM LEVEL 136 MMOL/L (136-145)
[2023-03-03] MEDS: SENOKOT S TAB PO PRN ×2 (06:59→18:37)
[2023-03-03] MEDS: ADVAIR HFA 115/21MCG INHALER INH SCH ×2 (07:23→19:25)
[2023-03-03 08:46] VITALS: BP 116/57
[2023-03-03] MEDS: AUGMENTIN 875 MG TAB PO SCH ×2 (08:46→20:15)
[2023-03-03] MEDS: MAGNESIUM OXIDE 400MG TAB (MAG-OX) PO SCH ×2 (08:46→20:16)
[2023-03-03] MEDS: CARVedilol 3.125 MG TAB PO SCH (08:47)
[2023-03-03] MEDS: LACTOBACILLUS ACIDOPHILUS CAP (BACID) PO SCH ×2 (08:47→18:18)
[2023-03-03] MEDS: DOXYCYCLINE HYCLATE 100MG TABLET PO SCH ×2 (08:47→20:16)
[2023-03-03] MEDS: ATORVASTATIN 20 MG TAB PO SCH (08:47)
[2023-03-03] MEDS: PERCOCET 5MG/325MG TAB PO PRN ×2 (13:08→20:16)
[2023-03-03] MEDS: ENOXAPARIN 40MG/0.4ML SYRINGE (J1650 PER 10MG) SC SCH (20:14)
[2023-03-03] MEDS: CYANOCOBALAMIN 500 MCG TAB PO SCH (20:15)
[2023-03-03] MEDS: MULTIVITAMINS/MINERALS THERAP 1 TAB PO SCH (20:15)
[2023-03-03] MEDS: VITAMIN D 1,000 INTERNATIONAL UNITS TABLET PO SCH (20:16)
[2023-03-04 06:00] VITALS: BP 122/59
[2023-03-04 06:22] LABS: BLOOD UREA NITROGEN 16 MG/DL (9-23); CALCIUM LEVEL 8.8 MG/DL (8.3-10.6); CARBON DIOXIDE LEVEL 30 MMOL/L (20-31); CHLORIDE LEVEL 103 MMOL/L (98-107); CREATININE FOR GFR 0.75 MG/DL (0.70-1.30); GLOMERULAR FILTRATION RATE > 60.0 (>49); GLUCOSE, FASTING 111 MG/DL (74-106); POTASSIUM SERUM 5.1 MMOL/L (3.5-5.1); SODIUM LEVEL 137 MMOL/L (136-145)
[2023-03-04] MEDS: ADVAIR HFA 115/21MCG INHALER INH SCH ×2 (07:30→20:31)
[2023-03-04 08:00] VITALS: BP 121/68
[2023-03-04] MEDS: AUGMENTIN 875 MG TAB PO SCH ×2 (08:44→20:40)
[2023-03-04] MEDS: CARVedilol 3.125 MG TAB PO SCH (08:46)
[2023-03-04] MEDS: PERCOCET 5MG/325MG TAB PO PRN ×2 (08:48→20:41)
[2023-03-04] MEDS: ATORVASTATIN 20 MG TAB PO SCH (08:48)
[2023-03-04] MEDS: DOXYCYCLINE HYCLATE 100MG TABLET PO SCH ×2 (08:48→20:40)
[2023-03-04] MEDS: MAGNESIUM OXIDE 400MG TAB (MAG-OX) PO SCH ×2 (08:48→20:40)
[2023-03-04] MEDS: LACTOBACILLUS ACIDOPHILUS CAP (BACID) PO SCH ×2 (08:53→17:39)
[2023-03-04] MEDS: SENOKOT S TAB PO PRN (08:55)
[2023-03-04] MEDS: NEOSPORIN TOP OINT 15GM TOP SCH (15:07)
[2023-03-04] MEDS: ENOXAPARIN 40MG/0.4ML SYRINGE (J1650 PER 10MG) SC SCH (20:40)
[2023-03-04] MEDS: MULTIVITAMINS/MINERALS THERAP 1 TAB PO SCH (20:40)
[2023-03-04] MEDS: CYANOCOBALAMIN 500 MCG TAB PO SCH (20:40)
[2023-03-04] MEDS: VITAMIN D 1,000 INTERNATIONAL UNITS TABLET PO SCH (20:40)
[2023-03-05 06:00] VITALS: BP 122/57
[2023-03-05 06:43] LABS: BLOOD UREA NITROGEN 15 MG/DL (9-23); CARBON DIOXIDE LEVEL 29 MMOL/L (20-31); CHLORIDE LEVEL 104 MMOL/L (98-107); CREATININE FOR GFR 0.77 MG/DL (0.70-1.30); GLOMERULAR FILTRATION RATE > 60.0 (>49); GLUCOSE, FASTING 97 MG/DL (74-106); POTASSIUM SERUM 5.3 MMOL/L (3.5-5.1); SODIUM LEVEL 138 MMOL/L (136-145)
[2023-03-05] MEDS: ADVAIR HFA 115/21MCG INHALER INH SCH ×2 (07:12→19:10)
[2023-03-05] MEDS: LACTOBACILLUS ACIDOPHILUS CAP (BACID) PO SCH ×2 (08:33→18:12)
[2023-03-05] MEDS: AUGMENTIN 875 MG TAB PO SCH ×2 (08:33→22:01)
[2023-03-05] MEDS: MAGNESIUM OXIDE 400MG TAB (MAG-OX) PO SCH ×2 (08:33→22:00)
[2023-03-05] MEDS: DOXYCYCLINE HYCLATE 100MG TABLET PO SCH ×2 (08:34→22:03)
[2023-03-05] MEDS: CARVedilol 3.125 MG TAB PO SCH (08:34)
[2023-03-05] MEDS: ATORVASTATIN 20 MG TAB PO SCH (08:34)
[2023-03-05] MEDS: SENOKOT S TAB PO PRN (11:54)
[2023-03-05 14:00] VITALS: BP 122/68
[2023-03-05] MEDS: VITAMIN D 1,000 INTERNATIONAL UNITS TABLET PO SCH (21:00)
[2023-03-05] MEDS: CYANOCOBALAMIN 500 MCG TAB PO SCH (22:00)
[2023-03-05] MEDS: MULTIVITAMINS/MINERALS THERAP 1 TAB PO SCH (22:01)
[2023-03-05] MEDS: ENOXAPARIN 40MG/0.4ML SYRINGE (J1650 PER 10MG) SC SCH (22:03)
[2023-03-06 06:00] VITALS: BP 131/61
[2023-03-06 06:59] LABS: BLOOD UREA NITROGEN 14 MG/DL (9-23); CALCIUM LEVEL 9.3 MG/DL (8.3-10.6); CARBON DIOXIDE LEVEL 28 MMOL/L (20-31); CHLORIDE LEVEL 104 MMOL/L (98-107); CREATININE FOR GFR 0.65 MG/DL (0.70-1.30); GLOMERULAR FILTRATION RATE > 60.0 (>49); GLUCOSE, FASTING 120 MG/DL (74-106); SODIUM LEVEL 140 MMOL/L (136-145)
[2023-03-06] MEDS: ADVAIR HFA 115/21MCG INHALER INH SCH ×2 (07:34→20:40)
[2023-03-06] MEDS: DOXYCYCLINE HYCLATE 100MG TABLET PO SCH ×2 (08:24→20:14)
[2023-03-06] MEDS: LACTOBACILLUS ACIDOPHILUS CAP (BACID) PO SCH ×2 (08:24→17:38)
[2023-03-06] MEDS: AUGMENTIN 875 MG TAB PO SCH ×2 (08:24→20:14)
[2023-03-06] MEDS: ATORVASTATIN 20 MG TAB PO SCH (08:24)
[2023-03-06] MEDS: MAGNESIUM OXIDE 400MG TAB (MAG-OX) PO SCH ×2 (08:25→20:14)
[2023-03-06] MEDS: CARVedilol 3.125 MG TAB PO SCH (08:25)
[2023-03-06] MEDS: PERCOCET 5MG/325MG TAB PO PRN ×2 (08:29→17:39)
[2023-03-06] MEDS: NEOSPORIN TOP OINT 15GM TOP SCH (14:47)
[2023-03-06] MEDS: VITAMIN D 1,000 INTERNATIONAL UNITS TABLET PO SCH (20:14)
[2023-03-06] MEDS: MULTIVITAMINS/MINERALS THERAP 1 TAB PO SCH (20:14)
[2023-03-06] MEDS: CYANOCOBALAMIN 500 MCG TAB PO SCH (20:14)
[2023-03-06] MEDS: ENOXAPARIN 40MG/0.4ML SYRINGE (J1650 PER 10MG) SC SCH (20:15)
[2023-03-07 04:50] VITALS: BP 129/61
[2023-03-07 06:59] LABS: BLOOD UREA NITROGEN 16 MG/DL (9-23); CARBON DIOXIDE LEVEL 29 MMOL/L (20-31); CHLORIDE LEVEL 103 MMOL/L (98-107); CREATININE FOR GFR 0.72 MG/DL (0.70-1.30); GLOMERULAR FILTRATION RATE > 60.0 (>49); GLUCOSE, FASTING 111 MG/DL (74-106); POTASSIUM SERUM 4.9 MMOL/L (3.5-5.1); SODIUM LEVEL 137 MMOL/L (136-145)
[2023-03-07] MEDS: ADVAIR HFA 115/21MCG INHALER INH SCH ×2 (07:17→20:28)
[2023-03-07] MEDS: DOXYCYCLINE HYCLATE 100MG TABLET PO SCH ×2 (08:18→20:37)
[2023-03-07] MEDS: AUGMENTIN 875 MG TAB PO SCH ×2 (08:18→20:37)
[2023-03-07] MEDS: LACTOBACILLUS ACIDOPHILUS CAP (BACID) PO SCH ×2 (08:18→18:00)
[2023-03-07] MEDS: MAGNESIUM OXIDE 400MG TAB (MAG-OX) PO SCH ×2 (08:19→20:37)
[2023-03-07] MEDS: ATORVASTATIN 20 MG TAB PO SCH (08:19)
[2023-03-07] MEDS: PERCOCET 5MG/325MG TAB PO PRN ×2 (08:20→18:01)
[2023-03-07] MEDS: CARVedilol 3.125 MG TAB PO SCH (08:21)
[2023-03-07] MEDS: ENOXAPARIN 40MG/0.4ML SYRINGE (J1650 PER 10MG) SC SCH (20:36)
[2023-03-07] MEDS: CYANOCOBALAMIN 500 MCG TAB PO SCH (20:37)
[2023-03-07] MEDS: MULTIVITAMINS/MINERALS THERAP 1 TAB PO SCH (20:37)
[2023-03-07] MEDS: VITAMIN D 1,000 INTERNATIONAL UNITS TABLET PO SCH (20:38)
[2023-03-08 06:00] VITALS: BP 115/59
[2023-03-08 06:00] LABS: BLOOD UREA NITROGEN 16 MG/DL (9-23); CALCIUM LEVEL 8.8 MG/DL (8.3-10.6); CARBON DIOXIDE LEVEL 27 MMOL/L (20-31); CHLORIDE LEVEL 104 MMOL/L (98-107); CREATININE FOR GFR 0.71 MG/DL (0.70-1.30); GLOMERULAR FILTRATION RATE > 60.0 (>49); GLUCOSE, FASTING 98 MG/DL (74-106); POTASSIUM SERUM 4.9 MMOL/L (3.5-5.1); SODIUM LEVEL 137 MMOL/L (136-145)
[2023-03-08] MEDS: ADVAIR HFA 115/21MCG INHALER INH SCH ×2 (07:24→20:06)
[2023-03-08] MEDS: CARVedilol 3.125 MG TAB PO SCH (09:00)
[2023-03-08] MEDS: DOXYCYCLINE HYCLATE 100MG TABLET PO SCH ×2 (09:29→20:03)
[2023-03-08] MEDS: LACTOBACILLUS ACIDOPHILUS CAP (BACID) PO SCH ×2 (09:30→17:56)
[2023-03-08] MEDS: ATORVASTATIN 20 MG TAB PO SCH (09:30)
[2023-03-08] MEDS: MAGNESIUM OXIDE 400MG TAB (MAG-OX) PO SCH ×2 (09:30→20:02)
[2023-03-08] MEDS: AUGMENTIN 875 MG TAB PO SCH ×2 (09:30→20:00)
[2023-03-08] MEDS: PERCOCET 5MG/325MG TAB PO PRN ×2 (09:32→20:02)
[2023-03-08] MEDS: NEOSPORIN TOP OINT 15GM TOP SCH (10:35)
[2023-03-08] MEDS: CYANOCOBALAMIN 500 MCG TAB PO SCH (20:00)
[2023-03-08] MEDS: VITAMIN D 1,000 INTERNATIONAL UNITS TABLET PO SCH (20:01)
[2023-03-08] MEDS: MULTIVITAMINS/MINERALS THERAP 1 TAB PO SCH (20:03)
[2023-03-08] MEDS: ENOXAPARIN 40MG/0.4ML SYRINGE (J1650 PER 10MG) SC SCH (20:04)
[2023-03-09 06:00] VITALS: BP 126/58
[2023-03-09] MEDS: ADVAIR HFA 115/21MCG INHALER INH SCH ×2 (07:19→19:41)
[2023-03-09] MEDS: LACTOBACILLUS ACIDOPHILUS CAP (BACID) PO SCH ×2 (08:16→17:57)
[2023-03-09] MEDS: AUGMENTIN 875 MG TAB PO SCH (08:16)
[2023-03-09] MEDS: MAGNESIUM OXIDE 400MG TAB (MAG-OX) PO SCH ×2 (08:16→20:05)
[2023-03-09] MEDS: CARVedilol 3.125 MG TAB PO SCH (08:16)
[2023-03-09] MEDS: ATORVASTATIN 20 MG TAB PO SCH (08:16)
[2023-03-09] MEDS: DOXYCYCLINE HYCLATE 100MG TABLET PO SCH (08:16)
[2023-03-09] MEDS: PERCOCET 5MG/325MG TAB PO PRN (08:20)
[2023-03-09] MEDS: MULTIVITAMINS/MINERALS THERAP 1 TAB PO SCH (20:06)
[2023-03-09] MEDS: VITAMIN D 1,000 INTERNATIONAL UNITS TABLET PO SCH (20:06)
[2023-03-09] MEDS: CYANOCOBALAMIN 500 MCG TAB PO SCH (20:06)
[2023-03-09] MEDS: ENOXAPARIN 40MG/0.4ML SYRINGE (J1650 PER 10MG) SC SCH (20:08)
[2023-03-10 06:00] VITALS: BP 140/66
[2023-03-10] MEDS: ADVAIR HFA 115/21MCG INHALER INH SCH ×2 (07:44→19:12)
[2023-03-10] MEDS: LACTOBACILLUS ACIDOPHILUS CAP (BACID) PO SCH ×2 (08:05→17:10)
[2023-03-10] MEDS: CARVedilol 3.125 MG TAB PO SCH (08:06)
[2023-03-10] MEDS: ATORVASTATIN 20 MG TAB PO SCH (08:06)
[2023-03-10] MEDS: MAGNESIUM OXIDE 400MG TAB (MAG-OX) PO SCH ×2 (08:06→21:18)
[2023-03-10] MEDS: NEOSPORIN TOP OINT 15GM TOP SCH (15:00)
[2023-03-10] MEDS: PERCOCET 5MG/325MG TAB PO PRN (17:10)
[2023-03-10] MEDS: ENOXAPARIN 40MG/0.4ML SYRINGE (J1650 PER 10MG) SC SCH (21:17)
[2023-03-10] MEDS: CYANOCOBALAMIN 500 MCG TAB PO SCH (21:18)
[2023-03-10] MEDS: MULTIVITAMINS/MINERALS THERAP 1 TAB PO SCH (21:18)
[2023-03-10] MEDS: VITAMIN D 1,000 INTERNATIONAL UNITS TABLET PO SCH (21:18)
[2023-03-11 06:00] VITALS: BP 119/64
[2023-03-11] MEDS: ADVAIR HFA 115/21MCG INHALER INH SCH (07:28)
[2023-03-11] MEDS: LACTOBACILLUS ACIDOPHILUS CAP (BACID) PO SCH (08:47)
[2023-03-11] MEDS: ATORVASTATIN 20 MG TAB PO SCH (08:47)
[2023-03-11] MEDS: MAGNESIUM OXIDE 400MG TAB (MAG-OX) PO SCH (08:47)
[2023-03-11] MEDS: PERCOCET 5MG/325MG TAB PO PRN (08:48)
[2023-03-11 08:49] VITALS: BP 123/64
[2023-03-11] MEDS: CARVedilol 3.125 MG TAB PO SCH (08:49)
[2023-03-11] MEDS ORDERED: PERC5TAB12 PO (10:27)
[2023-03-11] MEDS ORDERED: MAGN400T2 PO (10:27)
[2023-03-11] MEDS ORDERED: NEOM28OI TOP (10:27)
[2023-03-11] MEDS ORDERED: CARV3.12 PO (10:27)
== END 2023-03-11 12:16 | DRG 239 ==
LOC: EDSTATUS 07:30 → INTOOBSV 07:56 → M OR 07:56 → M PCU 12:38 → EEVIPCON 02-17 08:58 → OBSVTOIN 02-17 08:58 → M MSPAV 02-19 14:55
PROVIDERS: ADMIT Surgery Vascular Surgery; ATTEND Internal Medicine Nephrology
PROC: 0Y6H0Z2 Detachment at Right Lower Leg, Mid, Open Approach (ICD-10-PCS; principal; 2023-02-18 17:45)
PROC: 0Y3H0ZZ Control Bleeding in Right Lower Leg, Open Approach (ICD-10-PCS; 2023-02-19)
DX: I83.213 Varicose veins of right lower extremity with both ulcer of ankle and inflammation (principal); A41.9 Sepsis, unspecified organism; I50.42 Chronic combined systolic (congestive) and diastolic (congestive) heart failure; I42.8 Other cardiomyopathies; I47.1 Supraventricular tachycardia; N39.0 Urinary tract infection, site not specified; T87.43 Infection of amputation stump, right lower extremity; L97.319 Non-pressure chronic ulcer of right ankle with unspecified severity; E11.9 Type 2 diabetes mellitus without complications; J45.909 Unspecified asthma, uncomplicated; I11.0 Hypertensive heart disease with heart failure; J44.9 Chronic obstructive pulmonary disease, unspecified; I35.0 Nonrheumatic aortic (valve) stenosis; E78.5 Hyperlipidemia, unspecified; K21.9 Gastro-esophageal reflux disease without esophagitis; Z98.84 Bariatric surgery status; H40.9 Unspecified glaucoma; I44.7 Left bundle-branch block, unspecified; M10.9 Gout, unspecified; T87.89 Other complications of amputation stump; I16.0 Hypertensive urgency; Y83.5 Amputation of limb(s) as the cause of abnormal reaction of the patient, or of later complication, without mention of misadventure at the time of the procedure; G89.18 Other acute postprocedural pain; F32.A Depression, unspecified; E66.01 Morbid (severe) obesity due to excess calories; Z79.899 Other long term (current) drug therapy; M19.90 Unspecified osteoarthritis, unspecified site

== ENCOUNTER → 2023-03-17 | Outpatient (REF) | payer MEDICARE, MEDICAID ==
[~2023-03-17] MED LIST changes: +CARV3.12 PO; +MAGN400T2 PO; +NEOM28OI TOP; +PERC5TAB12 PO; -ceFAZolin SOD 2 GM in IV 1 EA IV ONE
[2023-03-17 09:10] LABS: HEMATOCRIT 30.8 % (42.0-52.0); HEMOGLOBIN 9.6 g/dl (13.5-17.5); MEAN CORPUSCULAR HEMOGLOBIN 27.5 pg (27.0-33.0); MEAN CORPUSCULAR HGB CONC 31.2 g/dl (32.0-36.5); MEAN CORPUSCULAR VOLUME 88.3 fl (80.0-96.0); PLATELET COUNT, AUTOMATED 463 10^3/uL (150-450); RED BLOOD COUNT 3.49 10^6/uL (4.30-6.10)
[2023-03-17 09:37] LABS: ALBUMIN 3.1 G/DL (3.2-5.2); ALKALINE PHOSPHATASE 173 U/L (46-116); ALT/SGPT 25 U/L (7.0-40); AST/SGOT 27 U/L (<34); BILIRUBIN,TOTAL 0.3 MG/DL (0.3-1.2); BLOOD UREA NITROGEN 14 MG/DL (9-23); CALCIUM LEVEL 9.2 MG/DL (8.3-10.6); CARBON DIOXIDE LEVEL 26 MMOL/L (20-31); CHLORIDE LEVEL 107 MMOL/L (98-107); CREATININE FOR GFR 0.72 MG/DL (0.70-1.30); GLOMERULAR FILTRATION RATE > 60.0 (>49); GLUCOSE, FASTING 151 MG/DL (74-106); MAGNESIUM LEVEL 1.4 MG/DL (1.8-2.4); POTASSIUM SERUM 4.3 MMOL/L (3.5-5.1); SODIUM LEVEL 136 MMOL/L (136-145); TOTAL PROTEIN 6.3 G/DL (5.7-8.2)
== END ==
LOC: SKLAB4 10:29
PROVIDERS: ATTEND Internal Medicine
DX: I10 Essential (primary) hypertension (principal)

== ENCOUNTER → 2024-01-31 | Outpatient (CLI) | payer MEDICARE, MEDICAID | LOC: M EKG 09:38 → M LAB 09:38 | PROVIDERS: ATTEND Internal Medicine Cardiovascular Disease | DX: I48.0 Paroxysmal atrial fibrillation (principal); I44.0 Atrioventricular block, first degree; I44.7 Left bundle-branch block, unspecified ==

== ENCOUNTER 2024-09-14 10:40 | Emergency (ER) | payer MEDICARE, MEDICAID ==
[~2024-09-14 10:40] MED LIST changes: +DOXY-440 PO; -DOXY-444 PO
[2024-09-14] MEDS ORDERED: ELIQ5TAB (10:55)
[2024-09-14 12:38] LABS: BLOOD UREA NITROGEN 31 MG/DL (9-23); CARBON DIOXIDE LEVEL 26 MMOL/L (20-31); CHLORIDE LEVEL 109 MMOL/L (98-107); CREATININE FOR GFR 0.89 MG/DL (0.70-1.30); GLOMERULAR FILTRATION RATE > 60.0 (>49); GLUCOSE, FASTING 127 MG/DL (74-106); POTASSIUM SERUM 5.2 MMOL/L (3.5-5.1); SODIUM LEVEL 141 MMOL/L (136-145)
[2024-09-14 13:17] LABS: BASO % 0.6 % (0.0-1.0); EOS # 0.1 10^3/uL (0.0-0.5); EOS % 1.6 % (0.0-3.0); HEMATOCRIT 29.3 % (42.0-52.0); HEMOGLOBIN 9.4 g/dl (13.5-17.5); LYMPH # 2.8 10^3/uL (1.5-5.0); LYMPH % 39.9 % (24.0-44.0); MEAN CORPUSCULAR HEMOGLOBIN 25.5 pg (27.0-33.0); MEAN CORPUSCULAR HGB CONC 32.1 g/dl (32.0-36.5); MEAN CORPUSCULAR VOLUME 79.6 fl (80.0-96.0); MONO # 0.5 10^3/uL (0.0-0.8); MONO % 7.3 % (2.0-8.0); NEUTROPHILS # 3.5 10^3/uL (1.5-8.5); NEUTROPHILS % 50.3 % (36.0-66.0); PLATELET COUNT, AUTOMATED 540 10^3/uL (150-450); RED BLOOD COUNT 3.68 10^6/uL (4.30-6.10)
[2024-09-14 14:46] LABS: ALBUMIN 1.7 G/DL (3.2-5.2); ALKALINE PHOSPHATASE 156 U/L (40-129); ALT/SGPT 26 U/L (7.0-40); AST/SGOT 24 U/L (<34); BILIRUBIN,DIRECT 0.1 MG/DL (<0.4); BILIRUBIN,TOTAL 0.2 MG/DL (0.3-1.2); TOTAL PROTEIN 4.8 G/DL (5.7-8.2)
[2024-09-14 15:34] VITALS: BP 110/69; TEMP 97.9; O2SAT 91
== END 2024-09-14 15:52 | disposition home or self-care (01) ==
LOC: M ED 10:40
DX: D50.9 Iron deficiency anemia, unspecified (principal); I44.7 Left bundle-branch block, unspecified; Z86.79 Personal history of other diseases of the circulatory system; Z79.01 Long term (current) use of anticoagulants; Z79.52 Long term (current) use of systemic steroids; Z79.899 Other long term (current) drug therapy

== ENCOUNTER → 2024-10-15 | Outpatient (CLI) | payer MEDICARE, MEDICAID ==
[~2024-10-15] MED LIST changes: -ADV250INH INH; +ADVA1AER9 INH; +ELIQ5TAB
== END ==
LOC: M PLAIMG 12:29
PROVIDERS: ATTEND Internal Medicine Cardiovascular Disease
DX: I50.22 Chronic systolic (congestive) heart failure (principal); I50.810 Right heart failure, unspecified; I35.0 Nonrheumatic aortic (valve) stenosis; I27.20 Pulmonary hypertension, unspecified

== ENCOUNTER → 2024-10-15 | Outpatient (CLI) | payer MEDICARE, MEDICAID | LOC: M EKG 13:50 | PROVIDERS: ATTEND Internal Medicine Cardiovascular Disease | DX: I48.0 Paroxysmal atrial fibrillation (principal); Z53.9 Procedure and treatment not carried out, unspecified reason ==

== ENCOUNTER → 2025-01-27 | Day surgery (SDC) | payer MEDICARE, MEDICAID ==
[~2025-01-27] VITALS: Ht 172.7 cm; Wt 87.5 kg
[~2025-01-27] MED LIST changes: +AMIO200T49 PO; -ELIQ5TAB; +ELIQ5TAB PO; +ENTR1TAB PO; +FARX1TAB5 PO; +FLUT1BLS5 INH; +FURO20TA2 PO; +IRON65TA2 PO; +OXYC1TAB23 PO; +PROBCAP14 PO; +THERTAB52 PO; +TORS20TA2 PO; +TURM500C PO; +VENTAER INH; +XALA0.007 OU
== END | disposition home or self-care (01) ==
LOC: M OPP 08:36
PROVIDERS: ATTEND Surgery
DX: Z53.09 Procedure and treatment not carried out because of other contraindication (principal)

== ENCOUNTER 2025-02-10 10:38 | Day surgery (SDC) | payer MEDICARE, MEDICAID ==
[~2025-02-10] VITALS: Ht 172.7 cm; Wt 88.0 kg
[2025-02-10] MEDS ORDERED: propofoL 200 MG/20 ML VIAL As Ordered ONE (11:49)
[2025-02-10] MEDS ORDERED: LIDOCAINE 2% 100MG/5ML SDV (FOR ANES.) As Ordered ONE (11:49)
[2025-02-10] MEDS ORDERED: fentaNYL 100 MCG/2 ML INJECTION As Ordered ONE (11:51)
[2025-02-10 12:41] VITALS: TEMP 97.1
[2025-02-10 13:12] VITALS: BP 132/75; O2SAT 97
== END 2025-02-10 13:16 | disposition home or self-care (01) ==
LOC: M OPP 10:38
PROVIDERS: ATTEND Surgery
DX: D50.9 Iron deficiency anemia, unspecified (principal); Z98.84 Bariatric surgery status; Z79.01 Long term (current) use of anticoagulants; Z79.51 Long term (current) use of inhaled steroids; Z79.891 Long term (current) use of opiate analgesic; Z79.899 Other long term (current) drug therapy
CPT/HCPCS: 43235; 45378; J3010